=== PATIENT | female | born 1985 | race Caucasian/White ===

== ENCOUNTER 2017-10-31 23:04 | Emergency (ER) | payer OTHER, MEDICAID ==
[2017-11-01] MEDS: ONDANSETRON 4 MG INJ IV (00:01)
[2017-11-01] MEDS: SOD CHLORIDE 0.9% 1,000 ML IV (00:01)
[2017-11-01] MEDS: morphine 4 MG/ML VIAL IV ×2 (00:01→05:13)
[2017-11-01 00:23] LABS: ADD MAN DIFF? NO
[2017-11-01 00:25] LABS: WHITE BLOOD COUNT 6.2 10^3/ul (4.8-10.8)
[2017-11-01 00:25] LABS: BASOPHILS % 0.3 % (0.0-2.0); EOSINOPHILS # 0.1 10^3/ul (0.0-0.5); EOSINOPHILS % 1.6 % (0.0-7.0); HEMATOCRIT 29.2 % (37.0-47.0); HEMOGLOBIN 8.6 g/dl (12.0-16.0); LYMPHOCYTES # 1.9 10^3/ul (0.8-2.9); MEAN CORPUSCULAR HEMOGLOBIN 20.6 pg (29.0-33.0); MEAN CORPUSCULAR HGB CONC 29.5 g/dl (32.0-37.0); MEAN PLATELET VOLUME 10.8 fl (7.4-10.4); MONOCYTE # 0.5 10^3/ul (0.3-0.9); MONOCYTES % 7.6 % (0.0-11.0); NEUTROPHIL # 3.7 10^3/ul (1.6-7.5); NEUTROPHILS % 60.2 % (39.0-77.0); PLATELET COUNT 441 10^3/UL (140-415); RED BLOOD COUNT 4.17 10^6/ul (4.20-5.40); RED CELL DISTRIBUTION WIDTH 19.5 % (11.5-14.5)
[2017-11-01 00:42] LABS: ALANINE AMINOTRANSFERASE 19 IU/L (13-69); ALBUMIN 4.2 g/dl (3.3-4.9); ALBUMIN/GLOBULIN RATIO 0.95; ALKALINE PHOSPHATASE 84 IU/L (42-121); ANION GAP 15 (8-16); ASPARTATE AMINO TRANSFERASE 23 IU/L (15-46); BILIRUBIN,INDIRECT 0.7 mg/dl (0-1.1); BILIRUBIN,TOTAL 0.7 mg/dl (0.2-1.3); BLOOD UREA NITROGEN 17 mg/dl (7-20); CALCIUM 8.9 mg/dl (8.4-10.2); CARBON DIOXIDE 16 mmol/L (21-31); CHLORIDE 116 mmol/L (97-110); CREATININE 1.05 mg/dl (0.44-1.00); GLUCOSE 95 mg/dl (70-220); LIPASE 110 U/L (23-300); SODIUM 144 mmol/L (135-144); TOTAL PROTEIN 8.6 g/dl (6.1-8.1)
[2017-11-01 00:46] LABS: ADD UMIC YES; UR ASCORBIC ACID NEGATIVE (NEGATIVE); UR BACTERIA FEW /HPF (NONE SEEN); UR BILIRUBIN (Dip) NEGATIVE (NEGATIVE); UR BLOOD (Dip) NEGATIVE (NEGATIVE); UR CLARITY CLEAR (CLEAR); UR COLOR STRAW (YELLOW); UR GLUCOSE (Dip) NEGATIVE (NEGATIVE); UR KETONES (Dip) NEGATIVE (NEGATIVE); UR LEUKOCYTE ESTERASE (Dip) NEGATIVE Leu/ul (NEGATIVE); UR NITRITE (Dip) NEGATIVE (NEGATIVE); UR RBC 1 /HPF (0-5); UR SPECIFIC GRAVITY (Dip) 1.011 (1.003-1.030); UR SQUAMOUS EPITHELIAL CELL FEW /HPF (FEW); UR TOTAL PROTEIN (Dip) 1+ mg/dl (NEGATIVE); UR UROBILINOGEN (Dip) NEGATIVE (NEGATIVE); UR WBC 10 /HPF (0-5)
[2017-11-01 00:48] LABS: POTASSIUM 2.8 mmol/L (3.5-5.1)
[2017-11-01] MEDS ORDERED: POTASSIUM CHLORIDE 40 MEQ in SOD CHLORIDE 0.9% 1,000 ML IV (01:00)
[2017-11-01] MEDS: POTASSIUM CHLORIDE 100 ML IVPB ×2 (02:33→05:03)
== END 2017-11-01 07:12 | disposition home or self-care (01) ==
LOC: FTE 23:04 → E/R 11-01 07:12
DX: K59.00 Constipation, unspecified (principal); N83.201 Unspecified ovarian cyst, right side; N20.0 Calculus of kidney; E87.6 Hypokalemia
CPT/HCPCS: 36415; 74176; 80053; 81001; 81025; 83690; 85025; 96374; 96375; 96376; 99285-25

== ENCOUNTER 2017-12-25 00:50 | Inpatient (IN) | payer OTHER, MEDICAID ==
[2017-12-25 04:19] LABS: ADD MAN DIFF? NO
[2017-12-25] MEDS: SOD CHLORIDE 0.9% 1,000 ML IV (04:20)
[2017-12-25 04:22] LABS: WHITE BLOOD COUNT 3.3 10^3/ul (4.8-10.8)
[2017-12-25 04:22] LABS: ABNORMAL IP MESSAGE 1; BASOPHILS % 0.6 % (0.0-2.0); EOSINOPHILS % 0.3 % (0.0-7.0); HEMATOCRIT 31.8 % (37.0-47.0); HEMOGLOBIN 9.1 g/dl (12.0-16.0); LYMPHOCYTES # 0.9 10^3/ul (0.8-2.9); LYMPHOCYTES % 26.5 % (15.0-51.0); MEAN CORPUSCULAR HGB CONC 28.6 g/dl (32.0-37.0); MEAN CORPUSCULAR VOLUME 73.4 fl (82.0-101.0); MEAN PLATELET VOLUME 10.9 fl (7.4-10.4); MONOCYTE # 0.3 10^3/ul (0.3-0.9); MONOCYTES % 8.6 % (0.0-11.0); NEUTROPHIL # 2.1 10^3/ul (1.6-7.5); NEUTROPHILS % 63.1 % (39.0-77.0); PLATELET COUNT 393 10^3/UL (140-415); RED BLOOD COUNT 4.33 10^6/ul (4.20-5.40); RED CELL DISTRIBUTION WIDTH 21.5 % (11.5-14.5)
[2017-12-25 04:27] LABS: POSITIVE DIFF @See below
[2017-12-25 04:31] LABS: ADD UMIC YES; UR ASCORBIC ACID NEGATIVE (NEGATIVE); UR BACTERIA FEW /HPF (NONE SEEN); UR BILIRUBIN (Dip) NEGATIVE (NEGATIVE); UR BLOOD (Dip) 1+ mg/dL (NEGATIVE); UR CLARITY SLIGHTLY CLOUDY (CLEAR); UR COLOR STRAW (YELLOW); UR GLUCOSE (Dip) NEGATIVE (NEGATIVE); UR KETONES (Dip) NEGATIVE (NEGATIVE); UR LEUKOCYTE ESTERASE (Dip) 2+ Leu/ul (NEGATIVE); UR NITRITE (Dip) NEGATIVE (NEGATIVE); UR RBC 2 /HPF (0-5); UR SPECIFIC GRAVITY (Dip) 1.008 (1.003-1.030); UR SQUAMOUS EPITHELIAL CELL FEW /HPF (FEW); UR TOTAL PROTEIN (Dip) 1+ mg/dl (NEGATIVE); UR UROBILINOGEN (Dip) NEGATIVE (NEGATIVE); UR WBC 19 /HPF (0-5)
[2017-12-25 04:37] LABS: ALANINE AMINOTRANSFERASE 16 IU/L (13-69); ALBUMIN 4.6 g/dl (3.3-4.9); ALBUMIN/GLOBULIN RATIO 1.04; ALKALINE PHOSPHATASE 126 IU/L (42-121); ANION GAP 13 (8-16); ASPARTATE AMINO TRANSFERASE 24 IU/L (15-46); BILIRUBIN,INDIRECT 0.7 mg/dl (0-1.1); BILIRUBIN,TOTAL 0.7 mg/dl (0.2-1.3); BLOOD UREA NITROGEN 11 mg/dl (7-20); CALCIUM 8.8 mg/dl (8.4-10.2); CARBON DIOXIDE 14 mmol/L (21-31); CHLORIDE 114 mmol/L (97-110); CREATININE 0.99 mg/dl (0.44-1.00); GLUCOSE 99 mg/dl (70-220); LIPASE 176 U/L (23-300); SODIUM 139 mmol/L (135-144)
[2017-12-25 04:43] LABS: POTASSIUM 2.3 mmol/L (3.5-5.1)
[2017-12-25] MEDS: POTASSIUM CHLORIDE 100 ML IVPB ×4 (05:16→11:58)
[2017-12-25] MEDS: morphine 2 MG INJ IV ×4 (07:44→20:54)
[2017-12-25] MEDS: ONDANSETRON 4 MG INJ IV ×2 (07:44→17:02)
[2017-12-25] MEDS: POTASSIUM CHLORIDE 30 MEQ in SOD CHLORIDE 0.9% 1,000 ML IV ×2 (09:46→22:48)
[2017-12-25 15:46] LABS: ANION GAP 10 (8-16); BLOOD UREA NITROGEN 8 mg/dl (7-20); CALCIUM 8.2 mg/dl (8.4-10.2); CARBON DIOXIDE 12 mmol/L (21-31); CHLORIDE 124 mmol/L (97-110); CREATININE 0.74 mg/dl (0.44-1.00); GLUCOSE 81 mg/dl (70-220); POTASSIUM 3.3 mmol/L (3.5-5.1); SODIUM 143 mmol/L (135-144)
[2017-12-25 16:14] LABS: MAGNESIUM 2.1 mg/dl (1.7-2.5)
[2017-12-25 16:14] LABS: PHOSPHORUS 2.3 mg/dl (2.5-4.9)
[2017-12-25] MEDS ORDERED: CEFTRIAXONE 1 GM/50 ML (PMX) 50 ML IVPB (16:30)
[2017-12-25] MEDS: POTASSIUM CHLORIDE (SR) 20 MEQ TAB PO ×3 (16:55→22:24)
[2017-12-25 17:32] LABS: AADO2 Arterial 5.2 mmHg (7.0-24.0); Allen Test ACCEPTAB; Arterial Base Excess -15.5 mmol/L (-3.0-3); Arterial Blood Gas Oxygen Sat 97.6 mmHG (95.0-98.0); Arterial COHb 0.4 % (0.0-3.0); Arterial Fraction of Oxyhgb 96.9 % (93.0-99.0); Arterial HCO3 10.2 mmol/L (22.0-26.0); Arterial MetHb 0.3 % (0.0-1.5); Arterial Total Hemglobin 8.5 g/dl (12.0-18.0); Arterial pCO2 23.9 mmhg (35-45); MODE ROOM AIR; Site Right Radial
[2017-12-25] MEDS: CEFTRIAXONE 1 GM/50 ML (PMX) 50 ML IVPB (18:21)
[2017-12-25 18:55] LABS: SODIUM,URINE RANDOM 93 mmol/L (30-90)
[2017-12-25 20:07] LABS: ANION GAP 9 (8-16); BLOOD UREA NITROGEN 8 mg/dl (7-20); CALCIUM 7.9 mg/dl (8.4-10.2); CARBON DIOXIDE 12 mmol/L (21-31); CHLORIDE 124 mmol/L (97-110); CREATININE 0.82 mg/dl (0.44-1.00); GLUCOSE 98 mg/dl (70-220); POTASSIUM 3.2 mmol/L (3.5-5.1); SODIUM 142 mmol/L (135-144)
[2017-12-25] MEDS: CITRIC ACID/SODIUM CITRATE 15 ML CUP PO (20:18)
[2017-12-25] MEDS: NA BICARBONATE 650 MG TAB PO (20:18)
[2017-12-25] MEDS: SODIUM BICARBONATE (IV ADD) 100 MEQ in DEXTROSE 5% 1,000 ML IV (22:24)
[2017-12-26 02:16] LABS: ANION GAP 9 (8-16); BLOOD UREA NITROGEN 7 mg/dl (7-20); CARBON DIOXIDE 11 mmol/L (21-31); CHLORIDE 124 mmol/L (97-110); CREATININE 0.82 mg/dl (0.44-1.00); GLUCOSE 109 mg/dl (70-220); POTASSIUM 3.1 mmol/L (3.5-5.1); SODIUM 141 mmol/L (135-144)
[2017-12-26 03:48] LABS: ADD MAN DIFF? NO
[2017-12-26 04:08] LABS: WHITE BLOOD COUNT 3.7 10^3/ul (4.8-10.8)
[2017-12-26 04:08] LABS: ABNORMAL IP MESSAGE 1; BASOPHILS % 0.5 % (0.0-2.0); EOSINOPHILS # 0.1 10^3/ul (0.0-0.5); EOSINOPHILS % 3.5 % (0.0-7.0); HEMATOCRIT 26.4 % (37.0-47.0); HEMOGLOBIN 7.3 g/dl (12.0-16.0); LYMPHOCYTES # 1.7 10^3/ul (0.8-2.9); LYMPHOCYTES % 45.4 % (15.0-51.0); MEAN CORPUSCULAR HEMOGLOBIN 20.8 pg (29.0-33.0); MEAN CORPUSCULAR HGB CONC 27.7 g/dl (32.0-37.0); MEAN CORPUSCULAR VOLUME 75.2 fl (82.0-101.0); MONOCYTE # 0.4 10^3/ul (0.3-0.9); MONOCYTES % 11.4 % (0.0-11.0); NEUTROPHIL # 1.4 10^3/ul (1.6-7.5); NEUTROPHILS % 38.9 % (39.0-77.0); PLATELET COUNT 321 10^3/UL (140-415); RED BLOOD COUNT 3.51 10^6/ul (4.20-5.40)
[2017-12-26 04:10] LABS: POSITIVE DIFF @See below
[2017-12-26] MEDS: POTASSIUM CHLORIDE (SR) 20 MEQ TAB PO ×6 (04:24→20:51)
[2017-12-26] MEDS: HYDROCODONE/APAP (5/325) TAB PO ×4 (04:24→21:05)
[2017-12-26] MEDS: SODIUM BICARBONATE (IV ADD) 100 MEQ in DEXTROSE 5% 1,000 ML IV (04:27)
[2017-12-26] MEDS: FAMOTIDINE 20 MG INJ IV ×2 (06:16→18:46)
[2017-12-26] MEDS: CITRIC ACID/SODIUM CITRATE 15 ML CUP PO ×3 (08:27→20:50)
[2017-12-26] MEDS: NA BICARBONATE 650 MG TAB PO ×3 (08:30→21:03)
[2017-12-26 09:29] LABS: HEMATOCRIT 26.2 % (37.0-47.0); HEMOGLOBIN 7.4 g/dl (12.0-16.0)
[2017-12-26 10:02] LABS: ANION GAP 10 (8-16); BLOOD UREA NITROGEN 8 mg/dl (7-20); CALCIUM 8.1 mg/dl (8.4-10.2); CARBON DIOXIDE 13 mmol/L (21-31); CHLORIDE 121 mmol/L (97-110); GLUCOSE 88 mg/dl (70-220); SODIUM 141 mmol/L (135-144)
[2017-12-26 10:07] LABS: POTASSIUM 2.8 mmol/L (3.5-5.1)
[2017-12-26] MEDS: SOD CHLORIDE 0.9% 250 ML IV* (11:46)
[2017-12-26] MEDS: POTASSIUM CHLORIDE 30 MEQ in SOD CHLORIDE 0.9% 1,000 ML IV (13:18)
[2017-12-26] MEDS: ONDANSETRON 4 MG INJ IV (13:43)
[2017-12-26 14:08] LABS: IMMEDIATE SPIN CROSSMATCH 1 1
[2017-12-26] MEDS: morphine LIQ (10 MG/5 ML) CUP PO (16:44)
[2017-12-26] MEDS: CEFTRIAXONE 1 GM/50 ML (PMX) 50 ML IVPB (18:46)
[2017-12-26] MEDS ORDERED: POTASSIUM CHLORIDE 50 ML IVPB (21:00)
[2017-12-26] MEDS: POTASSIUM CHLORIDE 100 ML IVPB (22:09)
[2017-12-27] MEDS: POTASSIUM CHLORIDE (SR) 20 MEQ TAB PO ×6 (01:27→20:26)
[2017-12-27] MEDS: HYDROCODONE/APAP (5/325) TAB PO ×4 (01:27→18:30)
[2017-12-27] MEDS: POTASSIUM CHLORIDE 30 MEQ in SOD CHLORIDE 0.9% 1,000 ML IV ×2 (03:24→18:21)
[2017-12-27] MEDS: FAMOTIDINE 20 MG INJ IV ×2 (05:54→18:21)
[2017-12-27 07:13] LABS: ABNORMAL IP MESSAGE 1; ADD MAN DIFF? NO; BASOPHILS % 0.5 % (0.0-2.0); EOSINOPHILS # 0.1 10^3/ul (0.0-0.5); HEMATOCRIT 29.3 % (37.0-47.0); HEMOGLOBIN 8.3 g/dl (12.0-16.0); LYMPHOCYTES # 1.8 10^3/ul (0.8-2.9); LYMPHOCYTES % 40.7 % (15.0-51.0); MEAN CORPUSCULAR HEMOGLOBIN 21.4 pg (29.0-33.0); MEAN CORPUSCULAR HGB CONC 28.3 g/dl (32.0-37.0); MEAN CORPUSCULAR VOLUME 75.5 fl (82.0-101.0); MEAN PLATELET VOLUME 11.2 fl (7.4-10.4); MONOCYTE # 0.5 10^3/ul (0.3-0.9); MONOCYTES % 11.8 % (0.0-11.0); NEUTROPHIL # 1.9 10^3/ul (1.6-7.5); NEUTROPHILS % 43.8 % (39.0-77.0); PLATELET COUNT 307 10^3/UL (140-415); RED BLOOD COUNT 3.88 10^6/ul (4.20-5.40); RED CELL DISTRIBUTION WIDTH 21.2 % (11.5-14.5)
[2017-12-27 07:13] LABS: WHITE BLOOD COUNT 4.3 10^3/ul (4.8-10.8)
[2017-12-27 07:17] LABS: POSITIVE DIFF @See below
[2017-12-27 07:32] LABS: ALANINE AMINOTRANSFERASE 18 IU/L (13-69); ALBUMIN 3.2 g/dl (3.3-4.9); ALBUMIN/GLOBULIN RATIO 0.91; ALKALINE PHOSPHATASE 82 IU/L (42-121); ANION GAP 12 (8-16); ASPARTATE AMINO TRANSFERASE 20 IU/L (15-46); BILIRUBIN,INDIRECT 0.4 mg/dl (0-1.1); BILIRUBIN,TOTAL 0.4 mg/dl (0.2-1.3); BLOOD UREA NITROGEN 7 mg/dl (7-20); CALCIUM 7.9 mg/dl (8.4-10.2); CARBON DIOXIDE 14 mmol/L (21-31); CHLORIDE 120 mmol/L (97-110); CREATININE 0.89 mg/dl (0.44-1.00); GLUCOSE 93 mg/dl (70-220); MAGNESIUM 1.8 mg/dl (1.7-2.5); PHOSPHORUS 3.3 mg/dl (2.5-4.9); SODIUM 143 mmol/L (135-144); TOTAL PROTEIN 6.7 g/dl (6.1-8.1)
[2017-12-27] MEDS: NA BICARBONATE 650 MG TAB PO ×3 (08:58→20:26)
[2017-12-27] MEDS: CITRIC ACID/SODIUM CITRATE 15 ML CUP PO ×3 (08:59→20:24)
[2017-12-27] MEDS ORDERED: POTASSIUM CHLORIDE 50 ML IVPB (16:30)
[2017-12-27] MEDS: CEFTRIAXONE 1 GM/50 ML (PMX) 50 ML IVPB (18:21)
[2017-12-27] MEDS: POTASSIUM CHLORIDE 100 ML IVPB (18:31)
[2017-12-27] MEDS ORDERED: POTASSIUM CHLORIDE (SR) 10 MEQ TAB PO (21:30)
[2017-12-28] MEDS: HYDROCODONE/APAP (5/325) TAB PO ×3 (03:58→21:51)
[2017-12-28] MEDS: POTASSIUM CHLORIDE 30 MEQ in SOD CHLORIDE 0.9% 1,000 ML IV ×3 (05:29→15:47)
[2017-12-28] MEDS: FAMOTIDINE 20 MG INJ IV ×2 (05:47→17:59)
[2017-12-28 07:56] LABS: ALANINE AMINOTRANSFERASE 27 IU/L (13-69); ALBUMIN 3.5 g/dl (3.3-4.9); ALBUMIN/GLOBULIN RATIO 0.94; ALKALINE PHOSPHATASE 98 IU/L (42-121); ANION GAP 14 (8-16); ASPARTATE AMINO TRANSFERASE 57 IU/L (15-46); BILIRUBIN,INDIRECT 0.3 mg/dl (0-1.1); BILIRUBIN,TOTAL 0.3 mg/dl (0.2-1.3); BLOOD UREA NITROGEN 6 mg/dl (7-20); CALCIUM 8.5 mg/dl (8.4-10.2); CARBON DIOXIDE 18 mmol/L (21-31); CHLORIDE 115 mmol/L (97-110); CREATININE 0.81 mg/dl (0.44-1.00); GLUCOSE 96 mg/dl (70-220); POTASSIUM 3.3 mmol/L (3.5-5.1); SODIUM 144 mmol/L (135-144); TOTAL PROTEIN 7.2 g/dl (6.1-8.1)
[2017-12-28 08:19] LABS: ADD MAN DIFF? NO
[2017-12-28 08:21] LABS: ABNORMAL IP MESSAGE 1; BASOPHILS % 0.2 % (0.0-2.0); EOSINOPHILS # 0.2 10^3/ul (0.0-0.5); EOSINOPHILS % 3.5 % (0.0-7.0); HEMATOCRIT 32.9 % (37.0-47.0); HEMOGLOBIN 9.2 g/dl (12.0-16.0); LYMPHOCYTES # 1.7 10^3/ul (0.8-2.9); LYMPHOCYTES % 36.1 % (15.0-51.0); MEAN CORPUSCULAR HEMOGLOBIN 21.3 pg (29.0-33.0); MEAN CORPUSCULAR VOLUME 76.2 fl (82.0-101.0); MEAN PLATELET VOLUME 10.9 fl (7.4-10.4); MONOCYTE # 0.4 10^3/ul (0.3-0.9); MONOCYTES % 9.6 % (0.0-11.0); NEUTROPHIL # 2.3 10^3/ul (1.6-7.5); NEUTROPHILS % 50.4 % (39.0-77.0); PLATELET COUNT 339 10^3/UL (140-415); RED BLOOD COUNT 4.32 10^6/ul (4.20-5.40); RED CELL DISTRIBUTION WIDTH 21.2 % (11.5-14.5)
[2017-12-28 08:21] LABS: WHITE BLOOD COUNT 4.6 10^3/ul (4.8-10.8)
[2017-12-28 08:23] LABS: POSITIVE DIFF @See below
[2017-12-28] MEDS: CITRIC ACID/SODIUM CITRATE 15 ML CUP PO ×3 (08:23→20:30)
[2017-12-28] MEDS: NA BICARBONATE 650 MG TAB PO ×3 (08:24→20:30)
[2017-12-28] MEDS: POTASSIUM CHLORIDE (SR) 20 MEQ TAB PO ×3 (08:24→20:30)
[2017-12-28] MEDS: CEFTRIAXONE 1 GM/50 ML (PMX) 50 ML IVPB ×2 (17:30→20:23)
[2017-12-28] MEDS: ZOLPIDEM 5 MG TAB PO (21:51)
[2017-12-29] MEDS: FAMOTIDINE 20 MG INJ IV ×2 (05:29→17:41)
[2017-12-29 06:44] LABS: ANION GAP 13 (8-16); BLOOD UREA NITROGEN 7 mg/dl (7-20); CALCIUM 8.4 mg/dl (8.4-10.2); CARBON DIOXIDE 16 mmol/L (21-31); CHLORIDE 120 mmol/L (97-110); CREATININE 0.81 mg/dl (0.44-1.00); GLUCOSE 88 mg/dl (70-220); POTASSIUM 3.7 mmol/L (3.5-5.1); SODIUM 145 mmol/L (135-144)
[2017-12-29] MEDS: HYDROCODONE/APAP (5/325) TAB PO ×3 (06:48→20:22)
[2017-12-29] MEDS: NA BICARBONATE 650 MG TAB PO ×3 (08:10→21:38)
[2017-12-29] MEDS: CITRIC ACID/SODIUM CITRATE 15 ML CUP PO ×3 (08:10→21:42)
[2017-12-29] MEDS: POTASSIUM CHLORIDE (SR) 20 MEQ TAB PO ×3 (08:10→21:38)
[2017-12-29] MEDS: SOD CHLORIDE 0.9% 500 ML IV (09:10)
[2017-12-29] MEDS: POTASSIUM CHLORIDE 30 MEQ in SOD CHLORIDE 0.9% 1,000 ML IV (13:20)
[2017-12-29 15:26] LABS: ADD UMIC NO; UR ASCORBIC ACID NEGATIVE (NEGATIVE); UR BILIRUBIN (Dip) NEGATIVE (NEGATIVE); UR BLOOD (Dip) NEGATIVE (NEGATIVE); UR CLARITY CLEAR (CLEAR); UR COLOR STRAW (YELLOW); UR GLUCOSE (Dip) NEGATIVE (NEGATIVE); UR KETONES (Dip) NEGATIVE (NEGATIVE); UR LEUKOCYTE ESTERASE (Dip) NEGATIVE Leu/ul (NEGATIVE); UR NITRITE (Dip) NEGATIVE (NEGATIVE); UR SPECIFIC GRAVITY (Dip) 1.008 (1.003-1.030); UR TOTAL PROTEIN (Dip) NEGATIVE (NEGATIVE); UR UROBILINOGEN (Dip) NEGATIVE (NEGATIVE)
[2017-12-29] MEDS: ZOLPIDEM 5 MG TAB PO (23:34)
[2017-12-30] MEDS: POTASSIUM CHLORIDE 30 MEQ in SOD CHLORIDE 0.9% 1,000 ML IV (02:11)
[2017-12-30] MEDS: FAMOTIDINE 20 MG INJ IV ×2 (05:45→17:49)
[2017-12-30 06:14] LABS: ADD MAN DIFF? NO
[2017-12-30 06:28] LABS: ABNORMAL IP MESSAGE 1; BASOPHILS % 0.3 % (0.0-2.0); EOSINOPHILS # 0.2 10^3/ul (0.0-0.5); HEMATOCRIT 32.3 % (37.0-47.0); MEAN CORPUSCULAR HEMOGLOBIN 21.3 pg (29.0-33.0); MEAN CORPUSCULAR HGB CONC 27.9 g/dl (32.0-37.0); MEAN CORPUSCULAR VOLUME 76.4 fl (82.0-101.0); MEAN PLATELET VOLUME 10.9 fl (7.4-10.4); MONOCYTE # 0.3 10^3/ul (0.3-0.9); MONOCYTES % 7.1 % (0.0-11.0); NEUTROPHIL # 1.4 10^3/ul (1.6-7.5); NEUTROPHILS % 35.3 % (39.0-77.0); PLATELET COUNT 332 10^3/UL (140-415); RED BLOOD COUNT 4.23 10^6/ul (4.20-5.40); RED CELL DISTRIBUTION WIDTH 20.5 % (11.5-14.5)
[2017-12-30 06:28] LABS: WHITE BLOOD COUNT 3.8 10^3/ul (4.8-10.8)
[2017-12-30 06:32] LABS: POSITIVE DIFF @See below
[2017-12-30 07:02] LABS: ANION GAP 12 (8-16); BLOOD UREA NITROGEN 8 mg/dl (7-20); CALCIUM 8.5 mg/dl (8.4-10.2); CARBON DIOXIDE 16 mmol/L (21-31); CHLORIDE 121 mmol/L (97-110); CREATININE 0.86 mg/dl (0.44-1.00); GLUCOSE 89 mg/dl (70-220); POTASSIUM 3.6 mmol/L (3.5-5.1); SODIUM 145 mmol/L (135-144)
[2017-12-30] MEDS: HYDROCODONE/APAP (5/325) TAB PO ×3 (08:42→22:41)
[2017-12-30] MEDS: NA BICARBONATE 650 MG TAB PO ×3 (08:43→20:35)
[2017-12-30] MEDS: POTASSIUM CHLORIDE (SR) 20 MEQ TAB PO ×3 (08:43→20:36)
[2017-12-30] MEDS: CITRIC ACID/SODIUM CITRATE 15 ML CUP PO ×3 (08:44→20:36)
[2017-12-30] MEDS: CEFTRIAXONE 1 GM/50 ML (PMX) 50 ML IVPB (17:47)
[2017-12-30] MEDS: ZOLPIDEM 5 MG TAB PO (22:44)
[2017-12-31] MEDS: FAMOTIDINE 20 MG INJ IV ×2 (05:29→18:01)
[2017-12-31] MEDS: HYDROCODONE/APAP (5/325) TAB PO ×4 (05:30→23:27)
[2017-12-31 06:52] LABS: BLOOD UREA NITROGEN 11 mg/dl (7-20); CALCIUM 8.7 mg/dl (8.4-10.2); CARBON DIOXIDE 18 mmol/L (21-31); CHLORIDE 116 mmol/L (97-110); CREATININE 0.92 mg/dl (0.44-1.00); GLUCOSE 86 mg/dl (70-220); SODIUM 143 mmol/L (135-144)
[2017-12-31 07:09] LABS: ANION GAP 12 (8-16); POTASSIUM 3.4 mmol/L (3.5-5.1)
[2017-12-31] MEDS: POTASSIUM CHLORIDE (SR) 20 MEQ TAB PO ×3 (08:36→20:41)
[2017-12-31] MEDS: NA BICARBONATE 650 MG TAB PO ×3 (08:37→20:41)
[2017-12-31] MEDS: CITRIC ACID/SODIUM CITRATE 15 ML CUP PO ×3 (08:38→20:42)
[2017-12-31] MEDS: SPIRONOLACTONE 25 MG TAB PO (12:31)
[2017-12-31 15:17] LABS: RETICULOCYTE COUNT # 0.046 X10^6 (0.020-0.110); RETICULOCYTE COUNT % 1.1 % (0.5-1.5)
[2017-12-31 15:17] LABS: RETICULOCYTE RBC 4.18
[2017-12-31 15:40] LABS: IRON 17 ug/dl (35-150)
[2017-12-31 15:44] LABS: LACTATE DEHYDROGENASE 343 IU/L (313-618)
[2017-12-31 15:44] LABS: C-REACTIVE PROTEIN < 0.5 mg/dl (0.0-0.9)
[2017-12-31 15:49] LABS: % IRON SATURATION 5 % SAT (22-52); TOTAL IRON BINDING CAPACITY 330 ug/dl (241-421)
[2017-12-31 16:54] LABS: ERYTHROCYTE SEDIMENTATION RATE 23 mm/Hr (0-20)
[2017-12-31 17:17] LABS: FERRITIN 5.5 ng/ml (6.2-137.0)
[2017-12-31 17:53] LABS: FOLATE 6.4 ng/ml (2.8-20.0)
[2017-12-31] MEDS: CEFTRIAXONE 1 GM/50 ML (PMX) 50 ML IVPB (18:02)
[2017-12-31] MEDS: ZOLPIDEM 5 MG TAB PO (23:28)
[2018-01-01] MEDS: HYDROCODONE/APAP (5/325) TAB PO ×3 (00:51→20:08)
[2018-01-01 06:06] LABS: PROTEIN, TOTAL 7.3 g/dL (6.1-8.1)
[2018-01-01] MEDS: FAMOTIDINE 20 MG INJ IV ×2 (06:19→18:17)
[2018-01-01 06:39] LABS: ANION GAP 15 (8-16); BLOOD UREA NITROGEN 10 mg/dl (7-20); CALCIUM 8.8 mg/dl (8.4-10.2); CARBON DIOXIDE 18 mmol/L (21-31); CHLORIDE 116 mmol/L (97-110); CREATININE 0.94 mg/dl (0.44-1.00); GLUCOSE 87 mg/dl (70-220); POTASSIUM 4.1 mmol/L (3.5-5.1); SODIUM 145 mmol/L (135-144)
[2018-01-01] MEDS: morphine 2 MG INJ IV ×3 (07:03→22:29)
[2018-01-01] MEDS: CITRIC ACID/SODIUM CITRATE 15 ML CUP PO ×3 (08:56→21:05)
[2018-01-01] MEDS: POTASSIUM CHLORIDE (SR) 20 MEQ TAB PO ×3 (08:56→21:04)
[2018-01-01] MEDS: NA BICARBONATE 650 MG TAB PO ×3 (08:57→21:05)
[2018-01-01] MEDS: SPIRONOLACTONE 25 MG TAB PO (08:57)
[2018-01-01 09:06] LABS: HEMATOCRIT 31.4 % (35.0-45.0); HEMOGLOBIN 9.1 g/dL (11.7-15.5); MCH 21.6 pg (27.0-33.0); MCV 74.4 fL (80.0-100.0); RDW 20.3 % (11.0-15.0); RED BLOOD CELL COUNT 4.22 Million/uL (3.80-5.10)
[2018-01-01] MEDS: DIPHENHYDRAMINE 25 MG CAP PO (10:14)
[2018-01-01 10:44] LABS: INR 0.97; PARTIAL THROMBOPLASTIN TIME 31.1 Sec (25.0-35.0)
[2018-01-01] MEDS: SOD CHLORIDE 0.9% 500 ML (12:00)
[2018-01-01] MEDS: MIDAZOLAM 1 MG/ML 2 ML INJ (12:35)
[2018-01-01] MEDS: FENTAnyl 50 MCG/ML VIAL (12:35)
[2018-01-01] MEDS: LIDOCAINE 1% (MDV) 10 ML INJ (12:47)
[2018-01-01 15:15] LABS: RHEUMATOID FACTOR NEGATIVE (NEGATIVE)
[2018-01-01 15:56] LABS: HAPTOGLOBIN 107 mg/dL (43-212)
[2018-01-01] MEDS: SOD FERRIC GLUC COMPLX 125 MG in SOD CHLORIDE 0.9% 100 ML IVPB (16:34)
[2018-01-01 16:41] LABS: ALBUMIN 3.8 g/dL (3.8-4.8); ALPHA-1-GLOBULINS 0.3 g/dL (0.2-0.3); ALPHA-2-GLOBULINS 0.7 g/dL (0.5-0.9); BETA 2 GLOBULINS 0.4 g/dL (0.2-0.5); BETA GLOBULINS 0.5 g/dL (0.4-0.6); GAMMA GLOBULINS 1.6 g/dL (0.8-1.7)
[2018-01-01] MEDS: ZOLPIDEM 5 MG TAB PO (23:58)
[2018-01-02] MEDS: HYDROCODONE/APAP (5/325) TAB PO ×2 (01:54→08:37)
[2018-01-02] MEDS: morphine LIQ (10 MG/5 ML) CUP PO ×2 (03:14→15:44)
[2018-01-02] MEDS: morphine 2 MG INJ IV ×3 (04:20→19:51)
[2018-01-02 05:44] LABS: ADD MAN DIFF? NO
[2018-01-02 05:47] LABS: WHITE BLOOD COUNT 4.4 10^3/ul (4.8-10.8)
[2018-01-02 05:47] LABS: ABNORMAL IP MESSAGE 1; BASOPHILS % 0.5 % (0.0-2.0); EOSINOPHILS # 0.1 10^3/ul (0.0-0.5); EOSINOPHILS % 3.2 % (0.0-7.0); HEMATOCRIT 27.8 % (37.0-47.0); LYMPHOCYTES # 1.7 10^3/ul (0.8-2.9); LYMPHOCYTES % 37.5 % (15.0-51.0); MEAN CORPUSCULAR HEMOGLOBIN 21.6 pg (29.0-33.0); MEAN CORPUSCULAR HGB CONC 28.8 g/dl (32.0-37.0); MEAN CORPUSCULAR VOLUME 74.9 fl (82.0-101.0); MEAN PLATELET VOLUME 11.4 fl (7.4-10.4); MONOCYTE # 0.5 10^3/ul (0.3-0.9); MONOCYTES % 10.2 % (0.0-11.0); NEUTROPHIL # 2.1 10^3/ul (1.6-7.5); NEUTROPHILS % 48.4 % (39.0-77.0); PLATELET COUNT 318 10^3/UL (140-415); RED BLOOD COUNT 3.71 10^6/ul (4.20-5.40); RED CELL DISTRIBUTION WIDTH 19.7 % (11.5-14.5)
[2018-01-02 05:55] LABS: POSITIVE DIFF @See below
[2018-01-02 06:31] LABS: PHOSPHORUS 4.1 mg/dl (2.5-4.9)
[2018-01-02 06:31] LABS: MAGNESIUM 2.1 mg/dl (1.7-2.5)
[2018-01-02 06:41] LABS: ANION GAP 12 (8-16); BLOOD UREA NITROGEN 11 mg/dl (7-20); CALCIUM 8.6 mg/dl (8.4-10.2); CARBON DIOXIDE 20 mmol/L (21-31); CHLORIDE 115 mmol/L (97-110); CREATININE 0.99 mg/dl (0.44-1.00); GLUCOSE 92 mg/dl (70-220); POTASSIUM 4.2 mmol/L (3.5-5.1); SODIUM 143 mmol/L (135-144)
[2018-01-02] MEDS: FAMOTIDINE 20 MG INJ IV ×2 (07:01→17:55)
[2018-01-02] MEDS: CITRIC ACID/SODIUM CITRATE 15 ML CUP PO ×3 (08:38→20:46)
[2018-01-02] MEDS: POTASSIUM CHLORIDE (SR) 20 MEQ TAB PO ×3 (08:38→20:47)
[2018-01-02] MEDS: SPIRONOLACTONE 25 MG TAB PO (09:00)
[2018-01-02 09:27] LABS: HEMOGLOBIN A 98.3 % (>96.0); HEMOGLOBIN A2 (QUANT) 1.7 % (1.8-3.5); HEMOGLOBIN F <1.0 % (<2.0)
[2018-01-02] MEDS: NA BICARBONATE 650 MG TAB PO ×3 (10:10→20:47)
[2018-01-02] MEDS: SOD FERRIC GLUC COMPLX 125 MG in SOD CHLORIDE 0.9% 100 ML IVPB (16:11)
[2018-01-02] MEDS: ZOLPIDEM 5 MG TAB PO (21:56)
[2018-01-03] MEDS: HYDROCODONE/APAP (5/325) TAB PO ×4 (00:33→22:25)
[2018-01-03] MEDS: FAMOTIDINE 20 MG INJ IV ×2 (05:45→18:25)
[2018-01-03] MEDS: morphine LIQ (10 MG/5 ML) CUP PO ×2 (05:48→12:40)
[2018-01-03 05:52] LABS: ADD MAN DIFF? NO
[2018-01-03 06:01] LABS: WHITE BLOOD COUNT 3.9 10^3/ul (4.8-10.8)
[2018-01-03 06:01] LABS: ABNORMAL IP MESSAGE 1; BASOPHILS % 0.8 % (0.0-2.0); EOSINOPHILS # 0.2 10^3/ul (0.0-0.5); EOSINOPHILS % 4.3 % (0.0-7.0); HEMATOCRIT 28.8 % (37.0-47.0); HEMOGLOBIN 8.3 g/dl (12.0-16.0); LYMPHOCYTES # 1.4 10^3/ul (0.8-2.9); LYMPHOCYTES % 35.8 % (15.0-51.0); MEAN CORPUSCULAR HEMOGLOBIN 21.7 pg (29.0-33.0); MEAN CORPUSCULAR HGB CONC 28.8 g/dl (32.0-37.0); MEAN CORPUSCULAR VOLUME 75.4 fl (82.0-101.0); MEAN PLATELET VOLUME 11.2 fl (7.4-10.4); MONOCYTE # 0.4 10^3/ul (0.3-0.9); MONOCYTES % 9.2 % (0.0-11.0); NEUTROPHIL # 1.9 10^3/ul (1.6-7.5); NEUTROPHILS % 49.6 % (39.0-77.0); PLATELET COUNT 308 10^3/UL (140-415); RED BLOOD COUNT 3.82 10^6/ul (4.20-5.40); RED CELL DISTRIBUTION WIDTH 19.5 % (11.5-14.5)
[2018-01-03 06:14] LABS: POSITIVE DIFF @See below
[2018-01-03 06:29] LABS: ANION GAP 12 (8-16); BLOOD UREA NITROGEN 11 mg/dl (7-20); CALCIUM 8.7 mg/dl (8.4-10.2); CARBON DIOXIDE 20 mmol/L (21-31); CHLORIDE 116 mmol/L (97-110); CREATININE 0.96 mg/dl (0.44-1.00); GLUCOSE 97 mg/dl (70-220); POTASSIUM 3.6 mmol/L (3.5-5.1); SODIUM 144 mmol/L (135-144)
[2018-01-03 06:30] LABS: PHOSPHORUS 4.4 mg/dl (2.5-4.9)
[2018-01-03 06:30] LABS: MAGNESIUM 2.1 mg/dl (1.7-2.5)
[2018-01-03] MEDS: SPIRONOLACTONE 25 MG TAB PO (09:00)
[2018-01-03] MEDS: NA BICARBONATE 650 MG TAB PO ×3 (09:06→20:37)
[2018-01-03] MEDS: CITRIC ACID/SODIUM CITRATE 15 ML CUP PO ×3 (09:07→20:37)
[2018-01-03] MEDS: POTASSIUM CHLORIDE (SR) 20 MEQ TAB PO ×3 (09:07→20:37)
[2018-01-03] MEDS: SOD FERRIC GLUC COMPLX 125 MG in SOD CHLORIDE 0.9% 100 ML IVPB (17:13)
[2018-01-03 17:26] LABS: ANA SCREEN POSITIVE (NEGATIVE)
[2018-01-03 18:11] LABS: ANA PATTERN SPECKLED
[2018-01-03] MEDS: ZOLPIDEM 5 MG TAB PO (23:56)
[2018-01-04] MEDS: FAMOTIDINE 20 MG INJ IV (05:36)
[2018-01-04 06:35] LABS: POTASSIUM 3.7 mmol/L (3.5-5.1)
[2018-01-04] MEDS: HYDROCODONE/APAP (5/325) TAB PO ×2 (07:42→12:01)
[2018-01-04] MEDS: CITRIC ACID/SODIUM CITRATE 15 ML CUP PO ×2 (09:08→13:20)
[2018-01-04] MEDS: SPIRONOLACTONE 25 MG TAB PO (09:09)
[2018-01-04] MEDS: NA BICARBONATE 650 MG TAB PO ×2 (09:09→13:20)
[2018-01-04] MEDS: POTASSIUM CHLORIDE (SR) 20 MEQ TAB PO ×2 (09:09→13:21)
[2018-01-04] MEDS: SOD FERRIC GLUC COMPLX 125 MG in SOD CHLORIDE 0.9% 100 ML IVPB (17:00)
[2018-01-04 18:01] LABS: ANA SCREEN POSITIVE (NEGATIVE)
[2018-01-07 17:56] LABS: ANA PATTERN SPECKLED
== END 2018-01-04 18:00 | disposition home or self-care (01) | DRG 641 ==
LOC: MS2 12-31 21:27 → FTE 00:50 → MS2 12-29 12:34 → MS4 05:15
PROC: 30233N1 Transfusion of Nonautologous Red Blood Cells into Peripheral Vein, Percutaneous Approach (ICD-10-PCS; principal; 2017-12-26)
DX: E87.6 Hypokalemia (principal); N39.0 Urinary tract infection, site not specified; N25.89 Other disorders resulting from impaired renal tubular function; E87.2 Acidosis; D72.819 Decreased white blood cell count, unspecified; D50.9 Iron deficiency anemia, unspecified; R53.1 Weakness; Z87.891 Personal history of nicotine dependence
CPT/HCPCS: 36415; 36430; 36600; 76775; 77012; 80048; 80053; 81001; 81003; 81025; 82436; 82607; 82728; 82746; 82803; 83010; 83020; 83540; 83615; 83690; 83735; 84100; 84132; 84133; 84155; 84165; 84300; 85014; 85018; 85025; 85045; 85610; 85651; 85730; 86038; 86140; 86235; 86430; 86644; 86850; 86870; 86900; 86901; 86920; 87081; 87086; 88305; 88311; 88313; 96374; 96375; 96376

== ENCOUNTER 2018-04-11 23:10 | Inpatient (IN) | payer OTHER ==
[2018-04-12 00:06] LABS: ADD MAN DIFF? NO
[2018-04-12 00:08] LABS: BASOPHILS % 0.3 % (0.0-2.0); EOSINOPHILS # 0.2 10^3/ul (0.0-0.5); EOSINOPHILS % 1.4 % (0.0-7.0); HEMATOCRIT 32.5 % (37.0-47.0); LYMPHOCYTES # 1.9 10^3/ul (0.8-2.9); LYMPHOCYTES % 17.2 % (15.0-51.0); MEAN CORPUSCULAR HEMOGLOBIN 24.8 pg (29.0-33.0); MEAN CORPUSCULAR HGB CONC 30.8 g/dl (32.0-37.0); MEAN CORPUSCULAR VOLUME 80.4 fl (82.0-101.0); MEAN PLATELET VOLUME 11.1 fl (7.4-10.4); MONOCYTE # 0.6 10^3/ul (0.3-0.9); MONOCYTES % 5.5 % (0.0-11.0); NEUTROPHIL # 8.2 10^3/ul (1.6-7.5); NEUTROPHILS % 75.1 % (39.0-77.0); PLATELET COUNT 405 10^3/UL (140-415); RED BLOOD COUNT 4.04 10^6/ul (4.20-5.40); RED CELL DISTRIBUTION WIDTH 17.6 % (11.5-14.5)
[2018-04-12 00:29] LABS: ALANINE AMINOTRANSFERASE 21 IU/L (13-69); ALBUMIN 3.8 g/dl (3.3-4.9); ALKALINE PHOSPHATASE 147 IU/L (42-121); ANION GAP 13 (8-16); ASPARTATE AMINO TRANSFERASE 23 IU/L (15-46); BILIRUBIN,INDIRECT 0.5 mg/dl (0-1.1); BILIRUBIN,TOTAL 0.5 mg/dl (0.2-1.3); BLOOD UREA NITROGEN 18 mg/dl (7-20); CALCIUM 8.4 mg/dl (8.4-10.2); CARBON DIOXIDE 17 mmol/L (21-31); CHLORIDE 113 mmol/L (97-110); CREATININE 1.24 mg/dl (0.44-1.00); GLUCOSE 92 mg/dl (70-220); LIPASE 159 U/L (23-300); SODIUM 141 mmol/L (135-144)
[2018-04-12 00:33] LABS: POTASSIUM 2.3 mmol/L (3.5-5.1)
[2018-04-12] MEDS ORDERED: POTASSIUM CHLORIDE (SR) 20 MEQ TAB PO (00:38)
[2018-04-12 00:47] LABS: ADD UMIC YES; UR AMORPHOUS CRYSTAL FEW /HPF (NONE SEEN); UR ASCORBIC ACID NEGATIVE (NEGATIVE); UR BACTERIA FEW /HPF (NONE SEEN); UR BILIRUBIN (Dip) NEGATIVE (NEGATIVE); UR BLOOD (Dip) 2+ mg/dL (NEGATIVE); UR CLARITY SLIGHTLY CLOUDY (CLEAR); UR COLOR RED (YELLOW); UR GLUCOSE (Dip) NEGATIVE (NEGATIVE); UR KETONES (Dip) NEGATIVE (NEGATIVE); UR LEUKOCYTE ESTERASE (Dip) 2+ Leu/ul (NEGATIVE); UR NITRITE (Dip) NEGATIVE (NEGATIVE); UR RBC 39 /HPF (0-5); UR SPECIFIC GRAVITY (Dip) 1.008 (1.003-1.030); UR SQUAMOUS EPITHELIAL CELL FEW /HPF (FEW); UR TOTAL PROTEIN (Dip) 1+ mg/dl (NEGATIVE); UR UROBILINOGEN (Dip) NEGATIVE (NEGATIVE); UR WBC 36 /HPF (0-5)
[2018-04-12] MEDS ORDERED: POTASSIUM CHLORIDE 40 MEQ in SOD CHLORIDE 0.9% 1,000 ML IV (00:57)
[2018-04-12] MEDS: ONDANSETRON 4 MG INJ IV (01:24)
[2018-04-12] MEDS: ACETAMINOPHEN 325 MG TAB PO ×2 (01:31→09:09)
[2018-04-12] MEDS: POTASSIUM CHLORIDE (SR) 20 MEQ TAB PO ×2 (01:32→08:10)
[2018-04-12] MEDS: CEFTRIAXONE 1 GM/50 ML (PMX) 50 ML IVPB (01:45)
[2018-04-12] MEDS: D5W-0.45 NACL + KCL 40 MEQ 1,000 ML IV ×3 (01:49→14:48)
[2018-04-12] MEDS: MAGNESIUM SULFATE 1 GM/D5W 100 ML IVPB (02:09)
[2018-04-12] MEDS ORDERED: BISACODYL (EC) 5 MG TAB PO (03:30)
[2018-04-12] MEDS: HYDROCODONE/APAP (5/325) TAB PO (03:51)
[2018-04-12] MEDS: PANTOPRAZOLE 40 MG INJ IV (06:42)
[2018-04-12 06:47] LABS: ADD MAN DIFF? NO
[2018-04-12 06:49] LABS: BASOPHILS % 0.4 % (0.0-2.0); EOSINOPHILS # 0.1 10^3/ul (0.0-0.5); EOSINOPHILS % 1.5 % (0.0-7.0); HEMATOCRIT 27.2 % (37.0-47.0); HEMOGLOBIN 8.4 g/dl (12.0-16.0); LYMPHOCYTES # 1.9 10^3/ul (0.8-2.9); LYMPHOCYTES % 23.8 % (15.0-51.0); MEAN CORPUSCULAR HEMOGLOBIN 24.6 pg (29.0-33.0); MEAN CORPUSCULAR HGB CONC 30.9 g/dl (32.0-37.0); MEAN CORPUSCULAR VOLUME 79.8 fl (82.0-101.0); MEAN PLATELET VOLUME 11.1 fl (7.4-10.4); MONOCYTE # 0.5 10^3/ul (0.3-0.9); MONOCYTES % 6.7 % (0.0-11.0); NEUTROPHIL # 5.3 10^3/ul (1.6-7.5); NEUTROPHILS % 67.2 % (39.0-77.0); PLATELET COUNT 315 10^3/UL (140-415); RED BLOOD COUNT 3.41 10^6/ul (4.20-5.40); RED CELL DISTRIBUTION WIDTH 17.5 % (11.5-14.5)
[2018-04-12 06:49] LABS: WHITE BLOOD COUNT 7.9 10^3/ul (4.8-10.8)
[2018-04-12 07:18] LABS: ALANINE AMINOTRANSFERASE 22 IU/L (13-69); ALBUMIN 2.9 g/dl (3.3-4.9); ALBUMIN/GLOBULIN RATIO 0.85; ALKALINE PHOSPHATASE 110 IU/L (42-121); ANION GAP 11 (8-16); ASPARTATE AMINO TRANSFERASE 20 IU/L (15-46); BILIRUBIN,INDIRECT 0.4 mg/dl (0-1.1); BILIRUBIN,TOTAL 0.4 mg/dl (0.2-1.3); BLOOD UREA NITROGEN 15 mg/dl (7-20); CALCIUM 7.9 mg/dl (8.4-10.2); CARBON DIOXIDE 16 mmol/L (21-31); CHLORIDE 116 mmol/L (97-110); CREATININE 1.08 mg/dl (0.44-1.00); GLUCOSE 92 mg/dl (70-220); MAGNESIUM 2.7 mg/dl (1.7-2.5); PHOSPHORUS 3.7 mg/dl (2.5-4.9); SODIUM 140 mmol/L (135-144); TOTAL PROTEIN 6.3 g/dl (6.1-8.1)
[2018-04-12 07:25] LABS: POTASSIUM 2.5 mmol/L (3.5-5.1)
[2018-04-12] MEDS: POTASSIUM CHLORIDE 20 MEQ/SW 100 ML IVPB ×2 (09:39→11:41)
[2018-04-12] MEDS: KETOROLAC 15 MG INJ IV (12:00)
[2018-04-12] MEDS ORDERED: POTASSIUM CHLORIDE 20 MEQ POWDER FOR ORAL SOLN PO ×4 (15:30→21:00)
[2018-04-12] MEDS ORDERED: KETOROLAC 15 MG INJ IV (15:30)
[2018-04-12] MEDS: SOD FERRIC GLUC COMPLX 125 MG in SOD CHLORIDE 0.9% 100 ML IVPB (17:00)
[2018-04-12] MEDS: POTASSIUM CHLORIDE 40 MEQ in SOD CHLORIDE 0.45% 1,000 ML IV (17:18)
[2018-04-12 19:03] LABS: POTASSIUM 3.2 mmol/L (3.5-5.1)
[2018-04-12] MEDS ORDERED: CITRIC ACID/NA CITRATE 30 ML CUP PO (21:00)
[2018-04-13] MEDS ORDERED: CEFTRIAXONE 1 GM/50 ML (PMX) 50 ML IVPB ×2 (02:00→09:00)
== END 2018-04-12 19:05 | disposition home or self-care (01) | DRG 699 ==
LOC: FTE 23:10 → TEL 04-12 01:01
PROVIDERS: Family Medicine
DX: N25.89 Other disorders resulting from impaired renal tubular function (principal); E87.2 Acidosis; N39.0 Urinary tract infection, site not specified; E87.6 Hypokalemia; D72.819 Decreased white blood cell count, unspecified; N20.0 Calculus of kidney; Z87.442 Personal history of urinary calculi; D50.9 Iron deficiency anemia, unspecified
CPT/HCPCS: 76775; 80053; 81001; 81025; 82355; 83690; 83735; 84100; 84132; 84703; 85025; 87086; 93005; 99291-25

== ENCOUNTER 2018-10-06 00:14 | Inpatient (IN) | payer OTHER ==
[2018-10-06] MEDS: KETOROLAC 15 MG INJ IV (01:44)
[2018-10-06] MEDS: morphine 4 MG/ML VIAL IV ×2 (01:44→04:34)
[2018-10-06] MEDS: ONDANSETRON 4 MG INJ IV (01:44)
[2018-10-06 01:55] LABS: ADD MAN DIFF? NO
[2018-10-06 01:57] LABS: BASOPHILS % 0.2 % (0.0-2.0); EOSINOPHILS # 0.1 10^3/ul (0.0-0.5); HEMATOCRIT 38.2 % (37.0-47.0); HEMOGLOBIN 12.2 g/dl (12.0-16.0); LYMPHOCYTES # 1.9 10^3/ul (0.8-2.9); LYMPHOCYTES % 19.8 % (15.0-51.0); MEAN CORPUSCULAR HEMOGLOBIN 27.3 pg (29.0-33.0); MEAN CORPUSCULAR HGB CONC 31.9 g/dl (32.0-37.0); MEAN CORPUSCULAR VOLUME 85.5 fl (82.0-101.0); MEAN PLATELET VOLUME 10.9 fl (7.4-10.4); MONOCYTE # 0.4 10^3/ul (0.3-0.9); MONOCYTES % 4.4 % (0.0-11.0); NEUTROPHIL # 7.2 10^3/ul (1.6-7.5); NEUTROPHILS % 74.2 % (39.0-77.0); PLATELET COUNT 354 10^3/UL (140-415); RED BLOOD COUNT 4.47 10^6/ul (4.20-5.40)
[2018-10-06 01:57] LABS: WHITE BLOOD COUNT 9.7 10^3/ul (4.8-10.8)
[2018-10-06 02:05] LABS: ADD UMIC YES; UR ASCORBIC ACID NEGATIVE (NEGATIVE); UR BACTERIA FEW /HPF (NONE SEEN); UR BILIRUBIN (Dip) NEGATIVE (NEGATIVE); UR BLOOD (Dip) 1+ mg/dL (NEGATIVE); UR CLARITY CLEAR (CLEAR); UR COLOR STRAW (YELLOW); UR GLUCOSE (Dip) NEGATIVE (NEGATIVE); UR KETONES (Dip) NEGATIVE (NEGATIVE); UR LEUKOCYTE ESTERASE (Dip) 1+ Leu/ul (NEGATIVE); UR NITRITE (Dip) NEGATIVE (NEGATIVE); UR RBC 2 /HPF (0-5); UR SPECIFIC GRAVITY (Dip) 1.009 (1.003-1.030); UR SQUAMOUS EPITHELIAL CELL FEW /HPF (FEW); UR TOTAL PROTEIN (Dip) 1+ mg/dl (NEGATIVE); UR UROBILINOGEN (Dip) NEGATIVE (NEGATIVE); UR WBC 21 /HPF (0-5)
[2018-10-06 02:18] LABS: ALANINE AMINOTRANSFERASE 9 IU/L (13-69); ALBUMIN 5.1 g/dl (3.3-4.9); ALBUMIN/GLOBULIN RATIO 1.08; ALKALINE PHOSPHATASE 163 IU/L (42-121); ANION GAP 13 (5-13); ASPARTATE AMINO TRANSFERASE 24 IU/L (15-46); BILIRUBIN,INDIRECT 0.6 mg/dl (0-1.1); BILIRUBIN,TOTAL 0.6 mg/dl (0.2-1.3); BLOOD UREA NITROGEN 6 mg/dl (7-20); CALCIUM 9.5 mg/dl (8.4-10.2); CARBON DIOXIDE 13 mmol/L (21-31); CHLORIDE 117 mmol/L (97-110); CREATININE 0.97 mg/dl (0.44-1.00); Estimated GFR > 60 mL/min (>60); GLUCOSE 90 mg/dl (70-220); LIPASE 592 U/L (23-300); SODIUM 143 mmol/L (135-144); TOTAL PROTEIN 9.8 g/dl (6.1-8.1)
[2018-10-06 02:23] LABS: POTASSIUM 2.6 mmol/L (3.5-5.1)
[2018-10-06] MEDS: POTASSIUM CHLORIDE (SR) 10 MEQ TAB PO (02:35)
[2018-10-06] MEDS: MAGNESIUM SULFATE 1 GM/D5W 100 ML IVPB (02:35)
[2018-10-06] MEDS: SOD CHLORIDE 0.9% 1,000 ML IV (03:03)
[2018-10-06] MEDS: CEFTRIAXONE 1 GM/50 ML (PMX) 50 ML IVPB (04:04)
[2018-10-06] MEDS: traMADol 50 MG TAB PO ×4 (10:13→23:54)
[2018-10-06] MEDS: CITRIC ACID/NA CITRATE 30 ML CUP PO ×2 (11:00→20:35)
[2018-10-06] MEDS: POTASSIUM CHLORIDE 30 MEQ in SOD CHLORIDE 0.45% 1,000 ML IV (11:29)
[2018-10-06] MEDS: NA BICARBONATE 650 MG TAB PO ×2 (12:20→20:35)
[2018-10-06] MEDS: POTASSIUM CHLORIDE (SR) 20 MEQ TAB PO ×2 (12:21→20:35)
[2018-10-06 22:26] LABS: POTASSIUM 3.1 mmol/L (3.5-5.1)
[2018-10-07 05:47] LABS: ADD MAN DIFF? NO
[2018-10-07 05:54] LABS: BASOPHILS % 0.4 % (0.0-2.0); EOSINOPHILS # 0.1 10^3/ul (0.0-0.5); EOSINOPHILS % 1.7 % (0.0-7.0); HEMATOCRIT 30.8 % (37.0-47.0); HEMOGLOBIN 9.8 g/dl (12.0-16.0); LYMPHOCYTES # 1.6 10^3/ul (0.8-2.9); LYMPHOCYTES % 21.8 % (15.0-51.0); MEAN CORPUSCULAR HEMOGLOBIN 27.6 pg (29.0-33.0); MEAN CORPUSCULAR HGB CONC 31.8 g/dl (32.0-37.0); MEAN CORPUSCULAR VOLUME 86.8 fl (82.0-101.0); MEAN PLATELET VOLUME 10.8 fl (7.4-10.4); MONOCYTE # 0.4 10^3/ul (0.3-0.9); MONOCYTES % 4.9 % (0.0-11.0); NEUTROPHILS % 70.8 % (39.0-77.0); PLATELET COUNT 262 10^3/UL (140-415); RED BLOOD COUNT 3.55 10^6/ul (4.20-5.40); RED CELL DISTRIBUTION WIDTH 18.3 % (11.5-14.5)
[2018-10-07 05:54] LABS: WHITE BLOOD COUNT 7.1 10^3/ul (4.8-10.8)
[2018-10-07] MEDS: PANTOPRAZOLE (EC) 40 MG TAB PO (05:54)
[2018-10-07] MEDS: traMADol 50 MG TAB PO ×3 (05:55→19:50)
[2018-10-07] MEDS: POTASSIUM CHLORIDE 30 MEQ in SOD CHLORIDE 0.45% 1,000 ML IV (05:59)
[2018-10-07 06:25] LABS: ALANINE AMINOTRANSFERASE 15 IU/L (13-69); ALBUMIN 3.5 g/dl (3.3-4.9); ALBUMIN/GLOBULIN RATIO 1.06; ALKALINE PHOSPHATASE 95 IU/L (42-121); ANION GAP 10 (5-13); ASPARTATE AMINO TRANSFERASE 16 IU/L (15-46); BILIRUBIN,INDIRECT 0.4 mg/dl (0-1.1); BILIRUBIN,TOTAL 0.4 mg/dl (0.2-1.3); BLOOD UREA NITROGEN 4 mg/dl (7-20); CALCIUM 8.1 mg/dl (8.4-10.2); CARBON DIOXIDE 14 mmol/L (21-31); CHLORIDE 118 mmol/L (97-110); CREATININE 0.92 mg/dl (0.44-1.00); Estimated GFR > 60 mL/min (>60); GLUCOSE 85 mg/dl (70-220); SODIUM 142 mmol/L (135-144); TOTAL PROTEIN 6.8 g/dl (6.1-8.1)
[2018-10-07 06:28] LABS: POTASSIUM 2.9 mmol/L (3.5-5.1)
[2018-10-07 06:30] LABS: LIPASE 510 U/L (23-300)
[2018-10-07] MEDS: POTASSIUM CHLORIDE (SR) 20 MEQ TAB PO ×4 (06:51→19:54)
[2018-10-07] MEDS: CITRIC ACID/NA CITRATE 30 ML CUP PO ×2 (09:39→19:55)
[2018-10-07] MEDS: NA BICARBONATE 650 MG TAB PO ×3 (09:40→19:54)
[2018-10-07 10:03] LABS: POTASSIUM 3.2 mmol/L (3.5-5.1)
[2018-10-07] MEDS: morphine 2 MG INJ IV ×3 (10:11→22:24)
[2018-10-07] MEDS: CEFTRIAXONE 1 GM/50 ML (PMX) 50 ML IVPB (13:13)
[2018-10-07 17:26] LABS: POTASSIUM 3.3 mmol/L (3.5-5.1)
[2018-10-07] MEDS ORDERED: TAMSULOSIN (SR) 0.4 MG CAP PO (19:52)
[2018-10-07] MEDS: TAMSULOSIN (SR) 0.4 MG CAP PO (19:54)
[2018-10-07] MEDS: ZOLPIDEM 5 MG TAB PO (23:30)
[2018-10-08] MEDS: POTASSIUM CHLORIDE 30 MEQ in SOD CHLORIDE 0.45% 1,000 ML IV ×4 (00:34→23:09)
[2018-10-08] MEDS: morphine 2 MG INJ IV ×3 (02:57→08:06)
[2018-10-08] MEDS: PANTOPRAZOLE (EC) 40 MG TAB PO (05:37)
[2018-10-08] MEDS: traMADol 50 MG TAB PO (05:38)
[2018-10-08 06:29] LABS: ADD MAN DIFF? NO
[2018-10-08 06:32] LABS: BASOPHILS % 0.4 % (0.0-2.0); EOSINOPHILS # 0.1 10^3/ul (0.0-0.5); EOSINOPHILS % 2.5 % (0.0-7.0); HEMATOCRIT 35.2 % (37.0-47.0); HEMOGLOBIN 10.8 g/dl (12.0-16.0); LYMPHOCYTES # 1.9 10^3/ul (0.8-2.9); LYMPHOCYTES % 34.9 % (15.0-51.0); MEAN CORPUSCULAR HEMOGLOBIN 27.3 pg (29.0-33.0); MEAN CORPUSCULAR HGB CONC 30.7 g/dl (32.0-37.0); MEAN CORPUSCULAR VOLUME 89.1 fl (82.0-101.0); MEAN PLATELET VOLUME 11.2 fl (7.4-10.4); MONOCYTE # 0.3 10^3/ul (0.3-0.9); PLATELET COUNT 298 10^3/UL (140-415); RED BLOOD COUNT 3.95 10^6/ul (4.20-5.40); RED CELL DISTRIBUTION WIDTH 18.9 % (11.5-14.5)
[2018-10-08 06:32] LABS: WHITE BLOOD COUNT 5.3 10^3/ul (4.8-10.8)
[2018-10-08 07:03] LABS: ALANINE AMINOTRANSFERASE 10 IU/L (13-69); ALBUMIN 3.8 g/dl (3.3-4.9); ALBUMIN/GLOBULIN RATIO 1.08; ALKALINE PHOSPHATASE 109 IU/L (42-121); AMYLASE 151 U/L (11-123); ANION GAP 10 (5-13); ASPARTATE AMINO TRANSFERASE 21 IU/L (15-46); BILIRUBIN,INDIRECT 0.4 mg/dl (0-1.1); BILIRUBIN,TOTAL 0.4 mg/dl (0.2-1.3); BLOOD UREA NITROGEN 3 mg/dl (7-20); CALCIUM 8.4 mg/dl (8.4-10.2); CARBON DIOXIDE 14 mmol/L (21-31); CHLORIDE 120 mmol/L (97-110); Estimated GFR > 60 mL/min (>60); GLUCOSE 94 mg/dl (70-220); SODIUM 144 mmol/L (135-144); TOTAL PROTEIN 7.3 g/dl (6.1-8.1)
[2018-10-08 07:10] LABS: POTASSIUM 2.7 mmol/L (3.5-5.1)
[2018-10-08 07:32] LABS: LIPASE 606 U/L (23-300)
[2018-10-08] MEDS: POTASSIUM CHLORIDE 100 ML IVPB ×2 (08:52→12:51)
[2018-10-08] MEDS: CITRIC ACID/NA CITRATE 30 ML CUP PO ×2 (08:54→21:38)
[2018-10-08] MEDS: ENOXAPARIN 40 MG/0.4 ML SYG SC (08:55)
[2018-10-08] MEDS: POTASSIUM CHLORIDE (SR) 20 MEQ TAB PO ×2 (08:55→11:18)
[2018-10-08] MEDS: NA BICARBONATE 650 MG TAB PO ×3 (08:55→21:38)
[2018-10-08] MEDS: HYDROmorphONE 1 MG/ML SYG IV ×3 (11:23→19:53)
[2018-10-08] MEDS: CEFTRIAXONE 1 GM/50 ML (PMX) 50 ML IVPB (12:11)
[2018-10-08] MEDS: POTASSIUM CHLORIDE (SR) 10 MEQ TAB PO ×2 (13:55→21:40)
[2018-10-08 15:20] LABS: POTASSIUM 3.4 mmol/L (3.5-5.1)
[2018-10-08] MEDS: METOCLOPRAMIDE 10 MG INJ IV (15:46)
[2018-10-08] MEDS: ZOLPIDEM 5 MG TAB PO (21:40)
[2018-10-08] MEDS: TAMSULOSIN (SR) 0.4 MG CAP PO (21:40)
[2018-10-09] MEDS: traMADol 50 MG TAB PO ×2 (00:20→10:33)
[2018-10-09] MEDS: HYDROmorphONE 1 MG/ML SYG IV ×5 (02:48→20:59)
[2018-10-09] MEDS: POTASSIUM CHLORIDE 30 MEQ in SOD CHLORIDE 0.45% 1,000 ML IV ×2 (05:44→22:25)
[2018-10-09] MEDS: PANTOPRAZOLE (EC) 40 MG TAB PO (05:44)
[2018-10-09 07:48] LABS: ANION GAP 9 (5-13); BLOOD UREA NITROGEN 6 mg/dl (7-20); CALCIUM 7.7 mg/dl (8.4-10.2); CARBON DIOXIDE 14 mmol/L (21-31); CHLORIDE 116 mmol/L (97-110); CREATININE 0.83 mg/dl (0.44-1.00); Estimated GFR > 60 mL/min (>60); GLUCOSE 81 mg/dl (70-220); POTASSIUM 3.8 mmol/L (3.5-5.1); SODIUM 139 mmol/L (135-144)
[2018-10-09] MEDS: NA BICARBONATE 650 MG TAB PO ×3 (08:14→20:58)
[2018-10-09] MEDS: CITRIC ACID/NA CITRATE 30 ML CUP PO ×3 (08:15→20:58)
[2018-10-09] MEDS: POTASSIUM CHLORIDE (SR) 10 MEQ TAB PO ×3 (08:15→20:58)
[2018-10-09] MEDS: ENOXAPARIN 40 MG/0.4 ML SYG SC (08:16)
[2018-10-09] MEDS: CEFTRIAXONE 1 GM/50 ML (PMX) 50 ML IVPB (12:52)
[2018-10-09 15:52] LABS: POTASSIUM 3.4 mmol/L (3.5-5.1)
[2018-10-09] MEDS: TAMSULOSIN (SR) 0.4 MG CAP PO (20:58)
[2018-10-09 21:10] LABS: POTASSIUM 2.9 mmol/L (3.5-5.1)
[2018-10-09] MEDS: ZOLPIDEM 5 MG TAB PO (22:24)
[2018-10-10] MEDS: HYDROmorphONE 1 MG/ML SYG IV ×6 (01:15→23:19)
[2018-10-10] MEDS: PANTOPRAZOLE (EC) 40 MG TAB PO (05:23)
[2018-10-10 06:23] LABS: MAGNESIUM 1.6 mg/dl (1.7-2.5)
[2018-10-10 06:38] LABS: ANION GAP 7 (5-13); BLOOD UREA NITROGEN 5 mg/dl (7-20); CALCIUM 7.3 mg/dl (8.4-10.2); CARBON DIOXIDE 16 mmol/L (21-31); CHLORIDE 114 mmol/L (97-110); CREATININE 0.75 mg/dl (0.44-1.00); Estimated GFR > 60 mL/min (>60); GLUCOSE 82 mg/dl (70-220); POTASSIUM 5.6 mmol/L (3.5-5.1); SODIUM 137 mmol/L (135-144)
[2018-10-10] MEDS: CITRIC ACID/NA CITRATE 30 ML CUP PO ×3 (08:31→20:17)
[2018-10-10] MEDS: NA BICARBONATE 650 MG TAB PO ×3 (08:32→21:31)
[2018-10-10] MEDS: POTASSIUM CHLORIDE (SR) 10 MEQ TAB PO ×3 (08:32→20:17)
[2018-10-10] MEDS: ENOXAPARIN 40 MG/0.4 ML SYG SC (08:33)
[2018-10-10] MEDS: traMADol 50 MG TAB PO ×2 (08:39→17:58)
[2018-10-10] MEDS: SOD CHLORIDE 0.45% 1,000 ML IV ×2 (08:41→22:48)
[2018-10-10] MEDS: MAGNESIUM SULFATE 2 GM/50 ML 50 ML IVPB (10:25)
[2018-10-10] MEDS: CEFTRIAXONE 1 GM/50 ML (PMX) 50 ML IVPB (12:23)
[2018-10-10 12:50] LABS: POTASSIUM 2.7 mmol/L (3.5-5.1)
[2018-10-10 16:20] LABS: POTASSIUM 3.2 mmol/L (3.5-5.1)
[2018-10-10] MEDS: TAMSULOSIN (SR) 0.4 MG CAP PO (20:17)
[2018-10-10] MEDS: ZOLPIDEM 5 MG TAB PO (23:18)
[2018-10-11] MEDS: ZOLPIDEM 5 MG TAB PO ×2 (01:49→23:28)
[2018-10-11] MEDS: traMADol 50 MG TAB PO ×4 (01:51→22:14)
[2018-10-11] MEDS: HYDROmorphONE 1 MG/ML SYG IV ×2 (03:29→09:17)
[2018-10-11] MEDS: SOD CHLORIDE 0.45% 1,000 ML IV ×2 (03:29→23:31)
[2018-10-11] MEDS: PANTOPRAZOLE (EC) 40 MG TAB PO (05:13)
[2018-10-11 06:38] LABS: ANION GAP 6 (5-13); BLOOD UREA NITROGEN 8 mg/dl (7-20); CALCIUM 8.2 mg/dl (8.4-10.2); CARBON DIOXIDE 18 mmol/L (21-31); CHLORIDE 118 mmol/L (97-110); CREATININE 0.84 mg/dl (0.44-1.00); Estimated GFR > 60 mL/min (>60); GLUCOSE 93 mg/dl (70-220); POTASSIUM 3.3 mmol/L (3.5-5.1); SODIUM 142 mmol/L (135-144)
[2018-10-11 07:45] LABS: LIPASE 881 U/L (23-300)
[2018-10-11 07:45] LABS: AMYLASE 193 U/L (11-123)
[2018-10-11] MEDS: POTASSIUM CHLORIDE (SR) 10 MEQ TAB PO ×4 (08:16→20:50)
[2018-10-11] MEDS: CITRIC ACID/NA CITRATE 30 ML CUP PO ×3 (08:16→20:49)
[2018-10-11] MEDS: NA BICARBONATE 650 MG TAB PO ×3 (08:16→20:50)
[2018-10-11] MEDS: ENOXAPARIN 40 MG/0.4 ML SYG SC (08:17)
[2018-10-11] MEDS ORDERED: IOHEXOL 14.3 MG(I)/ML (ADULT) BTL PO (12:30)
[2018-10-11] MEDS: POTASSIUM CHLORIDE (SR) 20 MEQ TAB PO (13:42)
[2018-10-11] MEDS: HYDROCODONE/APAP (5/325) TAB PO ×2 (13:51→18:20)
[2018-10-11] MEDS ORDERED: IBUPROFEN 400 MG TAB PO (14:00)
[2018-10-11] MEDS: SOD CHLORIDE 0.9% 100 ML (14:43)
[2018-10-11] MEDS: IOHEXOL 300MG/ML 150 ML BTL (14:43)
[2018-10-11] MEDS: TAMSULOSIN (SR) 0.4 MG CAP PO (20:50)
[2018-10-11] MEDS: HYDROmorphONE 0.5 MG/0.5 ML SYG IV (23:28)
[2018-10-12] MEDS: HYDROCODONE/APAP (5/325) TAB PO ×5 (02:10→23:08)
[2018-10-12] MEDS: traMADol 50 MG TAB PO ×3 (05:29→20:04)
[2018-10-12] MEDS: PANTOPRAZOLE (EC) 40 MG TAB PO (05:29)
[2018-10-12] MEDS: POTASSIUM CHLORIDE (SR) 10 MEQ TAB PO ×4 (08:19→20:02)
[2018-10-12] MEDS: NA BICARBONATE 650 MG TAB PO ×3 (08:19→20:02)
[2018-10-12] MEDS: CITRIC ACID/NA CITRATE 30 ML CUP PO ×3 (08:19→20:01)
[2018-10-12] MEDS: ENOXAPARIN 40 MG/0.4 ML SYG SC (08:20)
[2018-10-12] MEDS: SOD CHLORIDE 0.45% 1,000 ML IV ×2 (17:42→22:17)
[2018-10-12] MEDS: TAMSULOSIN (SR) 0.4 MG CAP PO (20:02)
[2018-10-12] MEDS: ZOLPIDEM 5 MG TAB PO (23:08)
[2018-10-13] MEDS: traMADol 50 MG TAB PO ×4 (02:29→20:15)
[2018-10-13 05:14] LABS: ADD MAN DIFF? NO
[2018-10-13] MEDS: PANTOPRAZOLE (EC) 40 MG TAB PO (05:19)
[2018-10-13 05:20] LABS: WHITE BLOOD COUNT 3.7 10^3/ul (4.8-10.8)
[2018-10-13 05:20] LABS: BASOPHILS % 0.3 % (0.0-2.0); EOSINOPHILS # 0.2 10^3/ul (0.0-0.5); EOSINOPHILS % 4.4 % (0.0-7.0); HEMATOCRIT 24.9 % (37.0-47.0); HEMOGLOBIN 7.6 g/dl (12.0-16.0); LYMPHOCYTES # 1.2 10^3/ul (0.8-2.9); LYMPHOCYTES % 32.3 % (15.0-51.0); MEAN CORPUSCULAR HEMOGLOBIN 27.6 pg (29.0-33.0); MEAN CORPUSCULAR HGB CONC 30.5 g/dl (32.0-37.0); MEAN CORPUSCULAR VOLUME 90.5 fl (82.0-101.0); MONOCYTE # 0.3 10^3/ul (0.3-0.9); MONOCYTES % 7.9 % (0.0-11.0); NEUTROPHILS % 54.6 % (39.0-77.0); PLATELET COUNT 188 10^3/UL (140-415); RED BLOOD COUNT 2.75 10^6/ul (4.20-5.40); RED CELL DISTRIBUTION WIDTH 17.4 % (11.5-14.5)
[2018-10-13] MEDS: HYDROCODONE/APAP (5/325) TAB PO ×4 (05:20→23:17)
[2018-10-13 06:00] LABS: AMYLASE 140 U/L (11-123)
[2018-10-13 06:00] LABS: LIPASE 368 U/L (23-300)
[2018-10-13 06:22] LABS: ALANINE AMINOTRANSFERASE 28 IU/L (13-69); ALBUMIN 2.8 g/dl (3.3-4.9); ALKALINE PHOSPHATASE 85 IU/L (42-121); ANION GAP 7 (5-13); ASPARTATE AMINO TRANSFERASE 56 IU/L (15-46); BILIRUBIN,INDIRECT 0.1 mg/dl (0-1.1); BILIRUBIN,TOTAL 0.1 mg/dl (0.2-1.3); BLOOD UREA NITROGEN 8 mg/dl (7-20); CALCIUM 8.3 mg/dl (8.4-10.2); CARBON DIOXIDE 24 mmol/L (21-31); CHLORIDE 110 mmol/L (97-110); CREATININE 0.87 mg/dl (0.44-1.00); Estimated GFR > 60 mL/min (>60); GLUCOSE 99 mg/dl (70-220); MAGNESIUM 1.8 mg/dl (1.7-2.5); POTASSIUM 3.8 mmol/L (3.5-5.1); SODIUM 141 mmol/L (135-144); TOTAL PROTEIN 5.6 g/dl (6.1-8.1)
[2018-10-13] MEDS: POTASSIUM CHLORIDE (SR) 10 MEQ TAB PO ×4 (08:04→20:15)
[2018-10-13] MEDS: CITRIC ACID/NA CITRATE 30 ML CUP PO ×3 (08:05→20:14)
[2018-10-13] MEDS: NA BICARBONATE 650 MG TAB PO ×3 (08:05→20:14)
[2018-10-13] MEDS: ENOXAPARIN 40 MG/0.4 ML SYG SC (08:11)
[2018-10-13] MEDS: SOD CHLORIDE 0.45% 1,000 ML IV (14:08)
[2018-10-13] MEDS: TAMSULOSIN (SR) 0.4 MG CAP PO (20:15)
[2018-10-14] MEDS: ZOLPIDEM 5 MG TAB PO (00:51)
[2018-10-14] MEDS: HYDROCODONE/APAP (5/325) TAB PO ×4 (04:11→19:42)
[2018-10-14] MEDS: SOD CHLORIDE 0.45% 1,000 ML IV ×2 (04:13→21:33)
[2018-10-14] MEDS: PANTOPRAZOLE (EC) 40 MG TAB PO (05:48)
[2018-10-14] MEDS: traMADol 50 MG TAB PO ×2 (06:48→14:05)
[2018-10-14] MEDS: POTASSIUM CHLORIDE (SR) 10 MEQ TAB PO ×4 (08:49→21:28)
[2018-10-14] MEDS: CITRIC ACID/NA CITRATE 30 ML CUP PO ×3 (08:49→21:27)
[2018-10-14] MEDS: NA BICARBONATE 650 MG TAB PO ×3 (08:49→21:27)
[2018-10-14] MEDS: ENOXAPARIN 40 MG/0.4 ML SYG SC (08:50)
[2018-10-14 13:30] LABS: HEMATOCRIT 26.4 % (37.0-47.0); HEMOGLOBIN 8.1 g/dl (12.0-16.0)
[2018-10-14] MEDS: TAMSULOSIN (SR) 0.4 MG CAP PO (21:27)
[2018-10-15] MEDS: HYDROCODONE/APAP (5/325) TAB PO ×3 (00:08→09:50)
[2018-10-15] MEDS: ZOLPIDEM 5 MG TAB PO (00:09)
[2018-10-15] MEDS: PANTOPRAZOLE (EC) 40 MG TAB PO (05:18)
[2018-10-15] MEDS: ENOXAPARIN 40 MG/0.4 ML SYG SC ×2 (09:00→09:50)
[2018-10-15] MEDS: POTASSIUM CHLORIDE (SR) 10 MEQ TAB PO ×2 (09:49→12:52)
[2018-10-15] MEDS: CITRIC ACID/NA CITRATE 30 ML CUP PO ×2 (09:49→12:52)
[2018-10-15] MEDS: NA BICARBONATE 650 MG TAB PO ×2 (09:50→12:52)
[2018-10-15] MEDS: traMADol 50 MG TAB PO (12:52)
== END 2018-10-15 13:26 | disposition home or self-care (01) | DRG 693 ==
LOC: E/R 00:14 → PP2 04:36
DX: N20.2 Calculus of kidney with calculus of ureter (principal); N17.0 Acute kidney failure with tubular necrosis; E87.2 Acidosis; E87.8 Other disorders of electrolyte and fluid balance, not elsewhere classified; M35.00 Sjogren syndrome, unspecified; N25.89 Other disorders resulting from impaired renal tubular function; E87.6 Hypokalemia; D64.9 Anemia, unspecified; E86.0 Dehydration; Z87.442 Personal history of urinary calculi; F12.90 Cannabis use, unspecified, uncomplicated
CPT/HCPCS: 36415; 71046; 74018; 74160; 74176; 76705; 80048; 80053; 81001; 81025; 82150; 82787; 83690; 83735; 84132; 85014; 85018; 85025; 87086; 93005; 96374; 96375; 99285-25

== ENCOUNTER 2018-12-25 22:19 | Inpatient (IN) | payer OTHER ==
[2018-12-26 00:16] LABS: URINE BLOOD (Dip) POC 2+ (NEGATIVE); URINE GLUCOSE (Dip) POC Negative (NEGATIVE); URINE KETONES (Dip) POC Negative (NEGATIVE); URINE LEUKOCYTE EST (Dip) POC 1+ (NEGATIVE); URINE NITRITE (Dip) POC Negative (NEGATIVE); URINE TOTAL PROTEIN POC 2+ (NEGATIVE)
[2018-12-26 00:21] LABS: ADD MAN DIFF? NO
[2018-12-26 00:23] LABS: BASOPHILS % 0.2 % (0.0-2.0); EOSINOPHILS # 0.1 10^3/ul (0.0-0.5); EOSINOPHILS % 1.2 % (0.0-7.0); HEMATOCRIT 37.6 % (37.0-47.0); HEMOGLOBIN 12.3 g/dl (12.0-16.0); LYMPHOCYTES # 1.6 10^3/ul (0.8-2.9); MEAN CORPUSCULAR HGB CONC 32.7 g/dl (32.0-37.0); MEAN CORPUSCULAR VOLUME 85.5 fl (82.0-101.0); MEAN PLATELET VOLUME 11.2 fl (7.4-10.4); MONOCYTE # 0.6 10^3/ul (0.3-0.9); MONOCYTES % 5.7 % (0.0-11.0); NEUTROPHIL # 7.5 10^3/ul (1.6-7.5); NEUTROPHILS % 76.6 % (39.0-77.0); PLATELET COUNT 347 10^3/UL (140-415); RED CELL DISTRIBUTION WIDTH 20.1 % (11.5-14.5)
[2018-12-26 00:23] LABS: WHITE BLOOD COUNT 9.8 10^3/ul (4.8-10.8)
[2018-12-26 00:25] LABS: ADD UMIC YES; UR ASCORBIC ACID NEGATIVE (NEGATIVE); UR BACTERIA FEW /HPF (NONE SEEN); UR BILIRUBIN (Dip) NEGATIVE (NEGATIVE); UR BLOOD (Dip) 2+ mg/dL (NEGATIVE); UR CLARITY CLEAR (CLEAR); UR COLOR STRAW (YELLOW); UR GLUCOSE (Dip) NEGATIVE (NEGATIVE); UR KETONES (Dip) NEGATIVE (NEGATIVE); UR LEUKOCYTE ESTERASE (Dip) 1+ Leu/ul (NEGATIVE); UR NITRITE (Dip) NEGATIVE (NEGATIVE); UR RBC 4 /HPF (0-5); UR SPECIFIC GRAVITY (Dip) 1.006 (1.003-1.030); UR TOTAL PROTEIN (Dip) 1+ mg/dl (NEGATIVE); UR UROBILINOGEN (Dip) NEGATIVE (NEGATIVE); UR WBC 13 /HPF (0-5)
[2018-12-26] MEDS: SOD CHLORIDE 0.9% 500 ML IV (00:25)
[2018-12-26 00:42] LABS: ALANINE AMINOTRANSFERASE 9 IU/L (13-69); ALBUMIN 4.9 g/dl (3.3-4.9); ALBUMIN/GLOBULIN RATIO 1.11; ALKALINE PHOSPHATASE 128 IU/L (42-121); ANION GAP 17 (5-13); ASPARTATE AMINO TRANSFERASE 26 IU/L (15-46); BILIRUBIN,INDIRECT 1.3 mg/dl (0-1.1); BILIRUBIN,TOTAL 1.3 mg/dl (0.2-1.3); BLOOD UREA NITROGEN 12 mg/dl (7-20); CALCIUM 9.8 mg/dl (8.4-10.2); CARBON DIOXIDE 15 mmol/L (21-31); CHLORIDE 111 mmol/L (97-110); CREATININE 1.09 mg/dl (0.44-1.00); Estimated GFR 57 mL/min (>60); GLUCOSE 99 mg/dl (70-220); LIPASE 515 U/L (23-300); SODIUM 143 mmol/L (135-144); TOTAL PROTEIN 9.3 g/dl (6.1-8.1)
[2018-12-26 00:53] LABS: B-TYPE NATRIURETIC PEPTIDE 77 PG/ML (0-125); TROPONIN-I < 0.012 ng/ml (0.000-0.120)
[2018-12-26] MEDS: POTASSIUM CHLORIDE (SR) 20 MEQ TAB PO ×5 (01:33→16:16)
[2018-12-26] MEDS: POTASSIUM CHLORIDE 50 ML IVPB ×4 (01:33→10:58)
[2018-12-26] MEDS: POTASSIUM CHLORIDE 20 MEQ POWDER FOR ORAL SOLN PO (01:52)
[2018-12-26] MEDS ORDERED: PROMETHAZINE 50 MG SUPP PR (03:00)
[2018-12-26] MEDS: morphine 4 MG/ML VIAL IV (03:03)
[2018-12-26] MEDS: ONDANSETRON 4 MG INJ IV (03:05)
[2018-12-26] MEDS ORDERED: ACETAMINOPHEN 325 MG TAB PO (03:30)
[2018-12-26] MEDS ORDERED: ONDANSETRON 4 MG INJ IV (03:30)
[2018-12-26] MEDS: PROMETHAZINE 25 MG SUPP PR (03:31)
[2018-12-26 06:13] LABS: CREATINE KINASE 44 IU/L (23-200)
[2018-12-26 06:23] LABS: CK INDEX 0.5; CK-MB < 0.22 ng/ml (0.0-2.4); TROPONIN-I < 0.012 ng/ml (0.000-0.120)
[2018-12-26] MEDS: KETOROLAC 15 MG INJ IV (10:14)
[2018-12-26] MEDS: NA BICARBONATE 650 MG TAB PO ×2 (10:59→20:04)
[2018-12-26] MEDS: traMADol 50 MG TAB PO ×2 (12:40→20:46)
[2018-12-26] MEDS: NS + KCL 20 MEQ 1,000 ML IV (12:40)
[2018-12-26 14:31] LABS: POTASSIUM 2.4 mmol/L (3.5-5.1)
[2018-12-26 14:53] LABS: CREATINE KINASE 45 IU/L (23-200)
[2018-12-26] MEDS: POTASSIUM CHLORIDE (SR) 10 MEQ TAB PO (15:02)
[2018-12-26 15:06] LABS: CK INDEX 0.5; CK-MB < 0.22 ng/ml (0.0-2.4); TROPONIN-I < 0.012 ng/ml (0.000-0.120)
[2018-12-26] MEDS ORDERED: PANTOPRAZOLE 40 MG INJ IV (16:30)
[2018-12-26] MEDS: predniSONE 10 MG TAB PO (18:28)
[2018-12-26] MEDS: PANTOPRAZOLE (EC) 40 MG TAB PO (18:29)
[2018-12-26] MEDS: SOD CHLORIDE 0.9% 1,000 ML IV (18:29)
[2018-12-26 19:49] LABS: POTASSIUM 2.6 mmol/L (3.5-5.1)
[2018-12-26] MEDS: POTASSIUM CHLORIDE (SR) 8 MEQ CAP PO ×2 (20:04→20:46)
[2018-12-26] MEDS: PROMETHAZINE 25 MG TAB PO (20:46)
[2018-12-26] MEDS: ZOLPIDEM 5 MG TAB PO (22:27)
[2018-12-27] MEDS: NS + KCL 20 MEQ 1,000 ML IV (05:09)
[2018-12-27] MEDS: PANTOPRAZOLE (EC) 40 MG TAB PO (05:10)
[2018-12-27] MEDS: PROMETHAZINE 25 MG TAB PO (05:10)
[2018-12-27] MEDS: traMADol 50 MG TAB PO ×2 (05:10→20:12)
[2018-12-27 05:42] LABS: ADD MAN DIFF? NO
[2018-12-27 05:55] LABS: WHITE BLOOD COUNT 8.7 10^3/ul (4.8-10.8)
[2018-12-27 05:55] LABS: BASOPHILS % 0.1 % (0.0-2.0); HEMATOCRIT 31.6 % (37.0-47.0); HEMOGLOBIN 10.1 g/dl (12.0-16.0); LYMPHOCYTES # 0.8 10^3/ul (0.8-2.9); LYMPHOCYTES % 8.8 % (15.0-51.0); MEAN CORPUSCULAR HEMOGLOBIN 28.5 pg (29.0-33.0); MEAN CORPUSCULAR VOLUME 89.3 fl (82.0-101.0); MEAN PLATELET VOLUME 11.3 fl (7.4-10.4); MONOCYTE # 0.1 10^3/ul (0.3-0.9); MONOCYTES % 1.2 % (0.0-11.0); NEUTROPHIL # 7.7 10^3/ul (1.6-7.5); PLATELET COUNT 272 10^3/UL (140-415); RED BLOOD COUNT 3.54 10^6/ul (4.20-5.40); RED CELL DISTRIBUTION WIDTH 21.4 % (11.5-14.5)
[2018-12-27 06:26] LABS: ANION GAP 10 (5-13); BLOOD UREA NITROGEN 5 mg/dl (7-20); CALCIUM 8.3 mg/dl (8.4-10.2); CARBON DIOXIDE 10 mmol/L (21-31); CHLORIDE 125 mmol/L (97-110); CREATININE 0.82 mg/dl (0.44-1.00); Estimated GFR > 60 mL/min (>60); GLUCOSE 120 mg/dl (70-220); POTASSIUM 3.1 mmol/L (3.5-5.1); SODIUM 145 mmol/L (135-144)
[2018-12-27 07:59] LABS: MAGNESIUM 2.1 mg/dl (1.7-2.5)
[2018-12-27 07:59] LABS: PHOSPHORUS 2.1 mg/dl (2.5-4.9)
[2018-12-27] MEDS: POTASSIUM CHLORIDE (SR) 8 MEQ CAP PO ×3 (08:13→20:12)
[2018-12-27] MEDS: NA BICARBONATE 650 MG TAB PO ×2 (08:13→20:12)
[2018-12-27] MEDS: KETOROLAC 15 MG INJ IV ×2 (09:08→16:30)
[2018-12-27] MEDS: SODIUM BICARBONATE (IV ADD) 125 MEQ in DEXTROSE 5% 1,000 ML IV (12:52)
[2018-12-27] MEDS: HYDROCODONE/APAP (5/325) TAB PO (14:00)
[2018-12-27] MEDS: POTASSIUM PHOSPHATE 20 MEQ in SOD CHLORIDE 0.9% 250 ML IVPB (16:31)
[2018-12-27] MEDS: ZOLPIDEM 5 MG TAB PO (23:27)
[2018-12-28] MEDS: HYDROCODONE/APAP (5/325) TAB PO ×3 (04:01→21:39)
[2018-12-28] MEDS: PANTOPRAZOLE (EC) 40 MG TAB PO (04:01)
[2018-12-28 06:11] LABS: ADD MAN DIFF? NO
[2018-12-28 06:15] LABS: WHITE BLOOD COUNT 8.6 10^3/ul (4.8-10.8)
[2018-12-28 06:15] LABS: BASOPHILS % 0.2 % (0.0-2.0); EOSINOPHILS # 0.1 10^3/ul (0.0-0.5); EOSINOPHILS % 0.7 % (0.0-7.0); HEMATOCRIT 29.4 % (37.0-47.0); HEMOGLOBIN 9.4 g/dl (12.0-16.0); LYMPHOCYTES # 2.2 10^3/ul (0.8-2.9); LYMPHOCYTES % 25.8 % (15.0-51.0); MEAN CORPUSCULAR HEMOGLOBIN 27.8 pg (29.0-33.0); MEAN PLATELET VOLUME 11.3 fl (7.4-10.4); MONOCYTE # 0.4 10^3/ul (0.3-0.9); MONOCYTES % 4.1 % (0.0-11.0); NEUTROPHIL # 5.9 10^3/ul (1.6-7.5); NEUTROPHILS % 68.7 % (39.0-77.0); PLATELET COUNT 252 10^3/UL (140-415); RED BLOOD COUNT 3.38 10^6/ul (4.20-5.40); RED CELL DISTRIBUTION WIDTH 21.7 % (11.5-14.5)
[2018-12-28 06:38] LABS: ANION GAP 11 (5-13); BLOOD UREA NITROGEN 7 mg/dl (7-20); CARBON DIOXIDE 12 mmol/L (21-31); CHLORIDE 121 mmol/L (97-110); CREATININE 0.85 mg/dl (0.44-1.00); Estimated GFR > 60 mL/min (>60); GLUCOSE 80 mg/dl (70-220); SODIUM 144 mmol/L (135-144)
[2018-12-28 06:52] LABS: POTASSIUM 2.6 mmol/L (3.5-5.1)
[2018-12-28] MEDS: POTASSIUM CHLORIDE (SR) 8 MEQ CAP PO ×5 (08:14→19:47)
[2018-12-28] MEDS: NA BICARBONATE 650 MG TAB PO ×3 (08:14→22:54)
[2018-12-28] MEDS: SODIUM BICARBONATE (IV ADD) 125 MEQ in DEXTROSE 5% 1,000 ML IV ×2 (09:30→14:36)
[2018-12-28] MEDS: traMADol 50 MG TAB PO (11:32)
[2018-12-28] MEDS: CEFTRIAXONE 1 GM/50 ML (PMX) 50 ML IVPB (14:35)
[2018-12-28] MEDS: morphine 2 MG INJ IV (14:36)
[2018-12-28] MEDS ORDERED: NA BICARBONATE 650 MG TAB PO (22:00)
[2018-12-28] MEDS: CITRIC ACID/NA CITRATE 30 ML CUP PO (22:47)
[2018-12-29] MEDS: D5W + KCL 20 MEQ 1,000 ML IV ×2 (00:10→18:30)
[2018-12-29] MEDS: morphine 2 MG INJ IV ×3 (00:13→20:39)
[2018-12-29] MEDS: KETOROLAC 15 MG INJ IV (04:20)
[2018-12-29] MEDS: CITRIC ACID/NA CITRATE 30 ML CUP PO ×3 (04:20→20:37)
[2018-12-29] MEDS: PANTOPRAZOLE (EC) 40 MG TAB PO (04:20)
[2018-12-29 05:19] LABS: ADD MAN DIFF? NO
[2018-12-29 05:25] LABS: BASOPHILS % 0.2 % (0.0-2.0); EOSINOPHILS # 0.1 10^3/ul (0.0-0.5); EOSINOPHILS % 0.7 % (0.0-7.0); HEMATOCRIT 27.7 % (37.0-47.0); HEMOGLOBIN 8.8 g/dl (12.0-16.0); LYMPHOCYTES # 1.5 10^3/ul (0.8-2.9); LYMPHOCYTES % 14.7 % (15.0-51.0); MEAN CORPUSCULAR HEMOGLOBIN 28.2 pg (29.0-33.0); MEAN CORPUSCULAR HGB CONC 31.8 g/dl (32.0-37.0); MEAN CORPUSCULAR VOLUME 88.8 fl (82.0-101.0); MONOCYTE # 0.6 10^3/ul (0.3-0.9); MONOCYTES % 6.3 % (0.0-11.0); NEUTROPHILS % 77.7 % (39.0-77.0); PLATELET COUNT 224 10^3/UL (140-415); RED BLOOD COUNT 3.12 10^6/ul (4.20-5.40); RED CELL DISTRIBUTION WIDTH 21.7 % (11.5-14.5)
[2018-12-29 05:25] LABS: WHITE BLOOD COUNT 10.2 10^3/ul (4.8-10.8)
[2018-12-29 05:56] LABS: ALANINE AMINOTRANSFERASE 16 IU/L (13-69); ALBUMIN 3.1 g/dl (3.3-4.9); ALBUMIN/GLOBULIN RATIO 0.93; ALKALINE PHOSPHATASE 75 IU/L (42-121); ANION GAP 10 (5-13); ASPARTATE AMINO TRANSFERASE 17 IU/L (15-46); BILIRUBIN,INDIRECT 0.8 mg/dl (0-1.1); BILIRUBIN,TOTAL 0.8 mg/dl (0.2-1.3); BLOOD UREA NITROGEN 7 mg/dl (7-20); CALCIUM 7.7 mg/dl (8.4-10.2); CARBON DIOXIDE 16 mmol/L (21-31); CHLORIDE 117 mmol/L (97-110); CREATININE 0.89 mg/dl (0.44-1.00); Estimated GFR > 60 mL/min (>60); GLUCOSE 84 mg/dl (70-220); MAGNESIUM 1.7 mg/dl (1.7-2.5); SODIUM 143 mmol/L (135-144); TOTAL PROTEIN 6.4 g/dl (6.1-8.1)
[2018-12-29 06:00] LABS: POTASSIUM 2.7 mmol/L (3.5-5.1)
[2018-12-29] MEDS: POTASSIUM CHLORIDE (SR) 8 MEQ CAP PO ×5 (08:59→20:39)
[2018-12-29] MEDS: NA BICARBONATE 650 MG TAB PO ×4 (09:00→20:39)
[2018-12-29] MEDS: traMADol 50 MG TAB PO (12:16)
[2018-12-29] MEDS: CEFTRIAXONE 1 GM/50 ML (PMX) 50 ML IVPB (14:25)
[2018-12-29] MEDS: HYDROCODONE/APAP (5/325) TAB PO (16:28)
[2018-12-29] MEDS: MELATONIN 5 MG TABLET PO (20:39)
[2018-12-29] MEDS ORDERED: ACETAMINOPHEN 325 MG TAB PO (21:30)
[2018-12-30] MEDS: HYDROCODONE/APAP (5/325) TAB PO ×2 (00:25→08:28)
[2018-12-30] MEDS: ZOLPIDEM 5 MG TAB PO (01:02)
[2018-12-30] MEDS: CITRIC ACID/NA CITRATE 30 ML CUP PO ×2 (05:27→14:00)
[2018-12-30] MEDS: morphine 2 MG INJ IV ×2 (05:28→11:39)
[2018-12-30] MEDS: PANTOPRAZOLE (EC) 40 MG TAB PO (05:28)
[2018-12-30] MEDS: D5W + KCL 20 MEQ 1,000 ML IV (05:34)
[2018-12-30 06:05] LABS: ADD MAN DIFF? NO
[2018-12-30 06:09] LABS: WHITE BLOOD COUNT 9.5 10^3/ul (4.8-10.8)
[2018-12-30 06:09] LABS: BASOPHILS % 0.2 % (0.0-2.0); EOSINOPHILS # 0.2 10^3/ul (0.0-0.5); HEMATOCRIT 28.1 % (37.0-47.0); HEMOGLOBIN 8.9 g/dl (12.0-16.0); LYMPHOCYTES # 1.9 10^3/ul (0.8-2.9); LYMPHOCYTES % 19.8 % (15.0-51.0); MEAN CORPUSCULAR HEMOGLOBIN 28.2 pg (29.0-33.0); MEAN CORPUSCULAR HGB CONC 31.7 g/dl (32.0-37.0); MEAN CORPUSCULAR VOLUME 88.9 fl (82.0-101.0); MEAN PLATELET VOLUME 11.4 fl (7.4-10.4); MONOCYTE # 0.6 10^3/ul (0.3-0.9); MONOCYTES % 6.6 % (0.0-11.0); NEUTROPHIL # 6.7 10^3/ul (1.6-7.5); NEUTROPHILS % 71.1 % (39.0-77.0); PLATELET COUNT 241 10^3/UL (140-415); RED BLOOD COUNT 3.16 10^6/ul (4.20-5.40); RED CELL DISTRIBUTION WIDTH 21.4 % (11.5-14.5)
[2018-12-30 06:23] LABS: ANION GAP 9 (5-13); BLOOD UREA NITROGEN 8 mg/dl (7-20); CALCIUM 7.9 mg/dl (8.4-10.2); CARBON DIOXIDE 19 mmol/L (21-31); CHLORIDE 115 mmol/L (97-110); CREATININE 0.76 mg/dl (0.44-1.00); Estimated GFR > 60 mL/min (>60); GLUCOSE 81 mg/dl (70-220); POTASSIUM 3.8 mmol/L (3.5-5.1); SODIUM 143 mmol/L (135-144)
[2018-12-30] MEDS: POTASSIUM CHLORIDE (SR) 8 MEQ CAP PO ×2 (08:28→13:33)
[2018-12-30] MEDS: NA BICARBONATE 650 MG TAB PO ×2 (08:28→13:32)
[2018-12-30] MEDS: CEFTRIAXONE 1 GM/50 ML (PMX) 50 ML IVPB (13:30)
== END 2018-12-30 15:45 | disposition home or self-care (01) | DRG 546 ==
LOC: E/R 22:19 → 6WM 12-27 22:52
DX: M35.00 Sjogren syndrome, unspecified (principal); E87.2 Acidosis; N39.0 Urinary tract infection, site not specified; I95.9 Hypotension, unspecified; N25.89 Other disorders resulting from impaired renal tubular function; E83.39 Other disorders of phosphorus metabolism; E87.6 Hypokalemia; D64.9 Anemia, unspecified; G89.4 Chronic pain syndrome; R63.4 Abnormal weight loss; Z68.21 Body mass index [BMI] 21.0-21.9, adult; K29.70 Gastritis, unspecified, without bleeding; K20.9 Esophagitis, unspecified
CPT/HCPCS: 71045; 74176; 80048; 80053; 81001; 81003; 81025; 82550; 82553; 83690; 83735; 83880; 84100; 84132; 84484; 85025; 87086; 93005